=== PATIENT | male | born 1965 | race African-American/Black ===

== ENCOUNTER 2017-03-24 22:52 | Inpatient (IN) | payer BC ==
[2017-03-25] MEDS ORDERED: FLUCONAZOLE 50 MG TABLET PO ONE (00:18)
[2017-03-25] MEDS ORDERED: SODIUM CHLORIDE 0.9% 1000 ML INFUS.BAG IV ONE ×2 (00:22→01:41)
--- NOTE | 2017-03-25 00:24 | PDOC ---
History of Present Illness - History of Present Illness Initial Comments: 03/25/17 00:29 Patient is a 51 year old male with no significant medical hx who is presenting to the ED with external penile irritation for one week. Patient reports one week ago he used a lubricant on his penis and since then hes had redness, burning and excoriations to the skin of the tip. He notes that his external irritation worsens when fluid touches it, specifically when he urinates. Patient denies fever, chills, penile discharge, or hematuria. <Shannan Emerson - Last Filed: 03/25/17 01:37> <Cheri Colón - Last Filed: 03/25/17 02:17> - General Chief Complaint: Penile Drainage Stated Complaint: INFECTION Time Seen by Provider: 03/24/17 23:21 Past History <Shannan Emerson - Last Filed: 03/25/17 01:37> - Immunization History Immunization Up to Date: No - Psycho/Social/Smoking Cessation Hx Anxiety: No Suicidal Ideation: No Smoking History: Never smoked Have you smoked in the past 12 months: No Information on smoking cessation initiated: No Hx Alcohol Use: No Drug/Substance Use Hx: No Substance Use Type: None <Cheri Colón - Last Filed: 03/25/17 02:17> - Past Medical History Allergies/Adverse Reactions: Allergies Allergy/AdvReac Type Severity Reaction Status Date / Time No Known Allergies Allergy Verified 03/24/17 23:08 Home Medications: Ambulatory Orders Diphenhydramine HCl [Benadryl -] 25 mg PO Q6H #28 capsule 03/01/16 Methylprednisolone [Medrol Dose Guy] 4 mg PO ASDIR #21 tablet 03/01/16 Review of Systems - Review of Systems Comments:: 03/25/17 00:29 GENERAL/CONSTITUTIONAL: No fever or chills. No weakness. HEAD, EYES, EARS, NOSE AND THROAT: No change in vision. No ear pain or discharge. No sore throat. CARDIOVASCULAR: No chest pain or shortness of breath. RESPIRATORY: No cough, wheezing, or hemoptysis. GASTROINTESTINAL: No nausea, vomiting, diarrhea or constipation. GENITOURINARY: Penile skin redness, irritation, burning, excoriations. No frequency, or change in urination. MUSCULOSKELETAL: No joint or muscle swelling or pain. No neck or back pain. ENDOCRINE: No increased thirst. No abnormal weight change. SKIN: No rash NEUROLOGIC: No headache, vertigo, loss of consciousness, or change in strength/ sensation. <Shannan Emerson - Last Filed: 03/25/17 01:37> *Physical Exam - Vital Signs Last Vital Signs Temp Pulse Resp BP Pulse Ox 98.3 F 88 18 163/101 98 03/24/17 23:05 03/24/17 23:05 03/24/17 23:05 03/24/17 23:05 03/24/17 23:05 - Physical Exam Comments: 03/25/17 00:30 GENERAL: Awake, alert, and fully oriented, in no acute distress HEAD: No signs of trauma EYES: PERRLA, EOMI, sclera anicteric, conjunctiva clear ENT: Auricles normal inspection, hearing grossly normal, nares patent, oropharynx clear without exudates. Moist mucosa NECK: Normal ROM, supple, no lymphadenopathy, JVD, or masses LUNGS: Breath sounds equal, clear to auscultation bilaterally. No wheezes, and no crackles HEART: Regular rate and rhythm, normal S1 and S2, no murmurs, rubs or gallops ABDOMEN: Soft, nontender, normoactive bowel sounds. No guarding, no rebound. No masses : Uncircumcised. Glands beefy red with excoriation. Some adherent cheese-like discharge. No testicular tenderness. EXTREMITIES: Normal range of motion, no edema. No clubbing or cyanosis. No cords, erythema, or tenderness NEUROLOGICAL: Cranial nerves II through XII grossly intact. Normal speech, normal gait SKIN: Warm, Dry, normal turgor, no rashes or lesions noted. HEMATOLOGIC/LYMPHATIC: No anemia, easy bleeding, or history of blood clots. ALLERGIC/IMMUNOLOGIC: No hives or skin allergy. <Shannan Emerson - Last Filed: 03/25/17 01:37> - Vital Signs Last Vital Signs Temp Pulse Resp BP Pulse Ox 98.3 F 88 18 163/101 98 03/24/17 23:05 03/24/17 23:05 03/24/17 23:05 03/24/17 23:05 03/24/17 23:05 <Cheri Colón - Last Filed: 03/25/17 02:17> ED Treatment Course - LABORATORY CBC & Chemistry Diagram: 03/25/17 00:35 03/25/17 00:35 <Shannan Emerson - Last Filed: 03/25/17 01:37> - LABORATORY CBC & Chemistry Diagram: 03/25/17 00:35 03/25/17 00:35 <Cheri Colón - Last Filed: 03/25/17 02:17> Medical Decision Making - Medical Decision Making 03/25/17 00:24 51 yo M with no pmhx here wtih c/o penile irritation after using a lubricant one week ago. now has burning pain at tip penis. no discharge, but has burning with urination when urine touches skin. pt is sexually active with , no new sexual partners. no f/c no flank pain no testicular pain no abd pain. no f/c no n/v. on exam awake , alert lungs clear heart rrr no mr/gl abd soft NT ND. : glans with uncircumcised, beefy red excoriated skin, cheeselike adherant dc, no penile dc. no testicular tenderness. differential DM, uti, hiv, balanitis, plan will treat with ua culture, labs ua culture glucose. 03/25/17 00:54 pt with BGM reading" high" will order labs, fluids, r/o DKA vs. HONK.unknown diabetic. 03/25/17 01:[address] Ceferino Mejia [phone] in [place]. 03/25/17 01:56 pt with uti, and balkanitis. will require topical bacitracin and nystatin cream to glans of penis daily. also given ceftriaxone for uti and diflucan. insuline 7 units, and ivf. hyperglycemia without DKA <Cheri Colón - Last Filed: 03/25/17 02:17> *DC/Admit/Observation/Transfer - Attestations Scribe Attestion: 03/25/17 00:31 Documentation prepared by Shannan Emerson, acting as paramedical aide for Cheri Colón MD. <Shannan Emerson - Last Filed: 03/25/17 01:37> - Discharge Dispostion Admit: Yes <Cheri Colón - Last Filed: 03/25/17 02:17> Diagnosis at time of Disposition: Diabetes mellitus, Balanitis, UTI (urinary tract infection) - Referrals Referrals: STAFF,NOT ON [Primary Care Provider] -
[2017-03-25 00:48] LABS: VENOUS PH 7.38 (7.32-7.42)
[2017-03-25 00:49] LABS: VENOUS BLOOD GAS HCO3 25.4 meq/L (19-25)
[2017-03-25 00:58] LABS: URINE APPEARANCE CLEAR; URINE BILIRUBIN NEGATIVE (NEGATIVE); URINE BLOOD NEGATIVE (NEGATIVE); URINE COLOR YELLOW; URINE GLUCOSE (UA) 3+ (NEGATIVE); URINE KETONE NEGATIVE (NEGATIVE); URINE LEUK ESTERASE NEGATIVE (NEGATIVE); URINE NITRITE NEGATIVE (NEGATIVE); URINE PROTEIN NEGATIVE (NEGATIVE); URINE UROBILINOGEN NEGATIVE E.U./dl (0.2-1.0)
[2017-03-25 00:59] LABS: BASOPHIL 0.8 % (0-2.0); EOSINOPHIL 2.9 % (0-4.5); MCH 32.3 pg (25.7-33.7); MCHC 34.1 g/dl (32.0-35.9); MEAN CELL VOLUME 94.8 fl (80-96); MEAN PLT VOLUME 9.8 fl (7.5-11.1); NEUTROPHILS 51.6 % (42.8-82.8); PLATELET COUNT 211 K/MM3 (134-434); RDW 13.1 % (11.9-15.9)
[2017-03-25] MEDS ORDERED: FLUCONAZOLE 100 MG TABLET (UD) ONE (01:27)
[2017-03-25 01:33] LABS: ALBUMIN 4.4 g/dl (3.4-5.0); ANION GAP 13 (8-16); BILIRUBIN,TOTAL 0.4 mg/dL (0.2-1.0); CALCIUM 9.3 mg/dL (8.5-10.1); CO2 25 mmol/L (21-32); CREATININE 1.7 mg/dL (0.7-1.3); SGOT/AST 18 U/L (15-37); SGPT/ALT 23 U/L (12-78); TOT PROT 7.8 g/dl (6.4-8.2)
[2017-03-25 01:34] LABS: ALK PHOS 85 U/L (45-117); HIV 1 & 2 AB NEGATIVE; HIV 1 AGp24 NEGATIVE
[2017-03-25 01:51] LABS: GLUCOSE,RANDOM 574 mg/dL (74-106)
[2017-03-25] MEDS ORDERED: INSULIN REGULAR HUMAN 100 UNITS/ML *VIAL IVPUSH ONE (01:57)
[2017-03-25] MEDS: SODIUM CHLORIDE 1,000 ML IV SCH ×2 (02:49→10:25)
--- NOTE | 2017-03-25 02:59 | HP ---
CHIEF COMPLAINT: pain to penis PCP: in [place] HISTORY OF PRESENT ILLNESS: This is a 51 year old male with no past medical history who presented to the ED with pain to penis. Pt denies discharge from penis. Pt does state that he had elevated blood sugar in 2008 which was successfully treated with diet and exercise with no sequelae. Pt states he was seen by his PCP 6 months ago and all his blood work was WNL. He states that he has had polyuria and polydypsia for about one year. Denies polyphagia. Pt states that he is monogamous with his . ER course was notable for: (1) Sugar 574 Recent Travel: pt denies PAST MEDICAL HISTORY: hyperglycemia 2008 PAST SURGICAL HISTORY: pt denies Social History: Smoking: pt denies Alcohol: pt denies Drugs: pt denies Family History: mother age 79, uterine CA sister diagnosed with uterine CA age 61, not expected to survive the year father age 48, "food poisoning" 1 brother and 3 other sisters all healthy 3 children, all healthy Allergies No Known Allergies Allergy (Verified 03/24/17 23:08) HOME MEDICATIONS: 3 Medication Instructions Multivitamin 1 tab po daily REVIEW OF SYSTEMS CONSTITUTIONAL: Absent: fever, chills, diaphoresis, generalized weakness, malaise, loss of appetite, weight change HEENT: Absent: rhinorrhea, nasal congestion, throat pain, throat swelling, difficulty swallowing, mouth swelling, ear pain, eye pain, visual changes CARDIOVASCULAR: Absent: chest pain, syncope, palpitations, irregular heart rate, lightheadedness , peripheral edema RESPIRATORY: Absent: cough, shortness of breath, dyspnea with exertion, orthopnea, wheezing, stridor, hemoptysis GASTROINTESTINAL: Absent: abdominal pain, abdominal distension, nausea, vomiting, diarrhea, constipation, melena, hematochezia GENITOURINARY: Present: Penile pain Absent: dysuria, frequency, urgency, hesitancy, hematuria, flank pain, genital pain MUSCULOSKELETAL: Absent: myalgia, arthralgia, joint swelling, back pain, neck pain SKIN: Absent: rash, itching, pallor HEMATOLOGIC/IMMUNOLOGIC: Absent: easy bleeding, easy bruising, lymphadenopathy, frequent infections ENDOCRINE: Absent: unexplained weight gain, unexplained weight loss, heat intolerance, cold intolerance NEUROLOGIC: Absent: headache, focal weakness or paresthesias, dizziness, unsteady gait, seizure, mental status changes, bladder or bowel incontinence PSYCHIATRIC: Absent: anxiety, depression, suicidal or homicidal ideation, hallucinations. PHYSICAL EXAMINATION Vital Signs - 24 hr 3 03/24/17 03/25/17 03/25/17 23:05 02:49 02:50 Temperature 98.3 F Pulse Rate 88 Respiratory 18 Rate Blood Pressure 163/101 163/97 O2 Sat by Pulse 98 98 Oximetry (%) GENERAL: Awake, alert, and fully oriented, in no acute distress. HEAD: Normal with no signs of trauma. EYES: Pupils equal, round and reactive to light, extraocular movements intact, sclera anicteric, conjunctiva clear. No lid lag. EARS, NOSE, THROAT: Ears normal, nares patent, oropharynx clear without exudates. Moist mucous membranes. NECK: Normal range of motion, supple without lymphadenopathy, JVD, or masses. LUNGS: Breath sounds equal, clear to auscultation bilaterally. No wheezes, and no crackles. No accessory muscle use. HEART: Regular rate and rhythm, normal S1 and S2 without murmur, rub or gallop. ABDOMEN: Soft, nontender, not distended, normoactive bowel sounds, no guarding, no rebound, no masses. No hepatomegaly or splenomegaly. GENTIOURINARY: Uncircumcised. Glans penis with adherent white coating on erythematous base. No phymosis or pseudophymosis MUSCULOSKELETAL: Normal range of motion at all joints. No bony deformities or tenderness. No CVA tenderness. UPPER EXTREMITIES: 2+ pulses, warm, well-perfused. No cyanosis. No clubbing. No peripheral edema. LOWER EXTREMITIES: 2+ pulses, warm, well-perfused. No calf tenderness. No peripheral edema. NEUROLOGICAL: Cranial nerves II-XII intact. Normal speech. Normal gait. PSYCHIATRIC: Cooperative. Good eye contact. Appropriate mood and affect. SKIN: Warm, dry, normal turgor, no rashes or lesions noted, normal capillary refill. Laboratory Results - last 24 hr 3 03/24/17 03/25/17 03/25/17 23:40 00:35 00:35 WBC 7.0 RBC 4.32 Hgb 13.9 Hct 40.9 MCV 94.8 MCHC 34.1 RDW 13.1 Plt Count 211 MPV 9.8 Neutrophils % 51.6 Lymphocytes % 35.6 Monocytes % 9.1 Eosinophils % 2.9 Basophils % 0.8 VBG pH 7.38 POC VBG pCO2 44.2 POC VBG pO2 49.8 H Mixed VBG HCO3 25.4 H Sodium Potassium Chloride Carbon Dioxide Anion Gap BUN Creatinine Creat Clearance w eGFR Random Glucose Calcium Total Bilirubin AST ALT Alkaline Phosphatase Total Protein Albumin Urine Color Yellow Urine Appearance Clear Urine pH 5.0 Urine Protein Negative Urine Glucose (UA) 3+ H Urine Ketones Negative Urine Blood Negative Urine Nitrite Negative Urine Bilirubin Negative Urine Urobilinogen Negative Ur Leukocyte Esterase Negative Acetone, Qual HIV 1&2 Antibody Screen HIV P24 Antigen 3 03/25/17 03/25/17 03/25/17 00:35 00:35 00:35 WBC RBC Hgb Hct MCV MCHC RDW Plt Count MPV Neutrophils % Lymphocytes % Monocytes % Eosinophils % Basophils % VBG pH POC VBG pCO2 POC VBG pO2 Mixed VBG HCO3 Sodium 134 L Potassium 4.7 Chloride 96 L Carbon Dioxide 25 Anion Gap 13 BUN 15 Creatinine 1.7 H Creat Clearance w eGFR 42.37 Random Glucose 574 H* Calcium 9.3 Total Bilirubin 0.4 AST 18 ALT 23 Alkaline Phosphatase 85 Total Protein 7.8 Albumin 4.4 Urine Color Urine Appearance Urine pH Urine Protein Urine Glucose (UA) Urine Ketones Urine Blood Urine Nitrite Urine Bilirubin Urine Urobilinogen Ur Leukocyte Esterase Acetone, Qual Negative HIV 1&2 Antibody Screen Negative HIV P24 Antigen Negative ASSESSMENT/PLAN: 51yM with PMH hyperglycemia in 2008 presented to ED with penile pain, redness. He was found to have significantly elevated glucose and is being admitted for new onset DM. New onset DM - start levemir 5u BID - BGM TIDAC and HS with novolog sliding scale balanitis-candidiasis - given diflucan x 1 in ED - clotrimazole after NS cleanse BID - pt instructed in proper hygeine JASMIN - Cr 1.7, unknown baseline but pt denies any history of kidney problems in past - will treat elevated sugar and hydrate, repeat Cr in AM, if not improving, renal consult DVT PPX - lovenox 40mg SC daily FEN - NS @ 100cc/hr - corrected sodium 141.6-WNL, repeat BMP in AM - diabetic diet Dispo: Pt currently requires inpatient management of his emergent condition and expected LOS exceeds 48H. Visit type - Emergency Visit Emergency Visit: Yes ED Registration Date: 03/24/17 Care time: The patient presented to the Emergency Department on the above date and was hospitalized for further evaluation of their emergent condition. - New Patient This patient is new to me today: Yes Date on this admission: 03/25/17 - Critical Care Critical Care patient: No
[2017-03-25 03:56] VITALS: BMI 28.0
[2017-03-25] MEDS: INSULIN SLIDING SCALE (NOVOLOG) 1 VIAL SQ SCH ×2 (06:10→11:46)
[2017-03-25] MEDS ORDERED: CLOTRIMAZOLE 1% CREAM 15 GM TUBE TP SCH ×2 (07:00→10:00)
[2017-03-25] MEDS ORDERED: INSULIN DETEMIR 100 UNITS/ML MDV SQ SCH (07:00)
[2017-03-25 07:53] LABS: BASOPHIL 1.6 % (0-2.0); EOSINOPHIL 2.9 % (0-4.5); MCH 33.1 pg (25.7-33.7); MCHC 34.8 g/dl (32.0-35.9); MEAN CELL VOLUME 95.2 fl (80-96); MEAN PLT VOLUME 9.3 fl (7.5-11.1); NEUTROPHILS 53.7 % (42.8-82.8); PLATELET COUNT 187 K/MM3 (134-434); WHITE BLOOD COUNT 5.9 K/mm3 (4.0-10.0)
[2017-03-25 08:02] LABS: ANION GAP 8 (8-16); CALCIUM 8.2 mg/dL (8.5-10.1); CO2 28 mmol/L (21-32); CREATININE 1.2 mg/dL (0.7-1.3); GLUCOSE,RANDOM 293 mg/dL (74-106); MAGNESIUM 1.9 mg/dL (1.8-2.4); PHOSPHOROUS 3.7 mg/dL (2.5-4.9)
[2017-03-25] MEDS ORDERED: PT OWN MED DRAWER 7, Y5N ONE (09:39)
[2017-03-25] MEDS ORDERED: ENOXAPARIN NA (PORCINE) 40 MG/0.4 ML DISP.SYRIN SQ SCH (10:00)
[2017-03-25 10:35] VITALS: BP 138/69; PULSE 86; TEMP 98.9
[2017-03-25] MEDS ORDERED: INSULIN (NOVOLOG) ASPART 100 UNITS/ML 10ML VIAL ONE (11:44)
[2017-03-25] MEDS ORDERED: LISINOPRIL 5 MG TABLET (FP) PO ONE (11:54)
[2017-03-25] MEDS ORDERED: glipiZIDE 5 MG TABLET (FP) PO ONE (12:01)
--- NOTE | 2017-03-25 12:10 | DS ---
Physical Exam: SUBJECTIVE: Patient seen and examined. He says his penis feels better, no pain, fever, chills OBJECTIVE: Vital Signs Period Temp Pulse Resp BP Sys/Burch Pulse Ox Last 24 Hr 98.8 F-99.6 F 72-86 17-20 138-164/69-97 98-98 PE Neuro: alert, awake, cn 2-12intact Pulm: CTAB CV: s1 s2 rrr no mrg Abd: s nd nd + bs : penial erythema, red, no discharge Ext: warm, no le edema Laboratory Results - last 24 hr 03/25/17 03/25/17 03/25/17 06:08 06:30 06:30 WBC 5.9 RBC 3.84 L Hgb 12.7 Hct 36.6 MCV 95.2 MCHC 34.8 RDW 13.0 Plt Count 187 MPV 9.3 Neutrophils % 53.7 Lymphocytes % 32.1 Monocytes % 9.7 Eosinophils % 2.9 Basophils % 1.6 Sodium 141 Potassium 3.7 D Chloride 105 Carbon Dioxide 28 Anion Gap 8 BUN 14 Creatinine 1.2 D POC Glucometer 294 Random Glucose 293 H D Calcium 8.2 L Phosphorus 3.7 Magnesium 1.9 HOSPITAL COURSE: Date of Admission:03/25/17 Date of Discharge: 03/25/17 Minutes to complete discharge: 36 Discharge Summary Reason For Visit: DIABETES MELLITUS. UTI BALANITIS Current Active Problems Balanitis (Acute) Diabetes mellitus (Acute) UTI (urinary tract infection) (Acute) Hospital Course: Initial Hospital Course: Briefly, this 51 year old male with no past medical history presented to the ED with pain to penis. Pt denied discharged from penis. He's had elevated blood sugar in 2008 which was successfully treated with diet and exercise with no sequelae. Pt stated he was seen by his PCP 6 months ago and all his blood work was WNL. He reports polyuria and polydypsia for about one year. Denies polyphagia. Pt stated hes monogamous with his . Subsequent Hospital Course/Progress Note/Discharge Summary by a/p: A: 51 year old with PMH hyperglycemia in 2008 presented to ED with penile pain, redness. He was found to have significantly elevated glucose and is being admitted for new onset DM. Plan: 1. New onset DM - Hgb a1c 13 - Start glipizide 2.5mg daily - Start metformin 500mg BID - Endocrine evaluated, to see pt in office next week 2. HTN - Start lisinopril 2.5mg daily 3. Balanitis-candidiasis - given diflucan x 1 in ED - clotrimazole after NS cleanse BID - pt instructed in proper hygeine 4. JASMIN - Likely pre renal - Resolved following fluids Dispo: - Home with new meds, and endocrine f/u Condition: Stable - Instructions Diet, Activity, Other Instructions: Please return to the ED for any new, persistent, or worsening symptoms. Follow up with your PCP in 1 week Take new medications as directed Monitor blood sugar for newly diagnosed diabetes, follow up with [employer] Dr. Saldana (Diabetes doctor)in 1 month Referrals: STAFF,NOT ON [Primary Care Provider] - 1 Week (PCP in [place]) Jalyn Yarbrough MD [Staff Physician] - 1 Week (Follow up this Monday, call office for appt ) Disposition: HOME - Home Medications Comprehensive Discharge Medication List: Ambulatory Orders Glipizide [Glipizide ER] 2.5 mg PO DAILY #30 tab.er.24 03/25/17 Lisinopril 2.5 mg PO DAILY #30 tablet 03/25/17 Metformin HCl [Glucophage -] 500 mg PO BID #60 tablet 03/25/17 Miscellaneous Medical Supply [Glucometer Device] 1 each SQ ASDIR #1 kit Miscellaneous Medical Supply [Glucometer Test Strips #100] 1 each SQ ASDIR #1 box 03/25/17 This patient is new to me today: Yes Date on this admission: 03/25/17 Emergency Visit: Yes ED Registration Date: 03/25/17 Care time: The patient presented to the Emergency Department on the above date and was hospitalized for further evaluation of their emergent condition. Critical Care patient: No - Discharge Referral Referred to [facility] Med [facility] No
--- NOTE | 2017-03-25 12:11 | CONSULT ---
Consult Consult Specialty:: Endocrinology Referred by:: Leilani Gomez Reason for Consultation:: New Onset DM - History of Present Illness Chief Complaint: penile pain History of Present Illness: This is a 51 year old male with no past medical history who presented to the ED with pain to penis. Pt denied discharge from penis. Pt does state that he had elevated blood sugar in 2008 which was successfully treated with diet and exercise with no sequelae. Pt states he was seen by his PCP 6 months ago and all his blood work was WNL. He states that he has had polyuria and polydypsia for about one year. Denies polyphagia. Denies any visual symptoms. No paresthesia of feet. No family h/o DM. Wt loss around 10 lbs in last few months - History Source History Provided By: Patient, Medical Record Limitations to Obtaining History: No Limitations - Alcohol/Substance Use Hx Alcohol Use: No - Smoking History Smoking history: Never smoked Have you smoked in the past 12 months: No Home Medications - Allergies Allergies/Adverse Reactions: Allergies Allergy/AdvReac Type Severity Reaction Status Date / Time No Known Allergies Allergy Verified 03/24/17 23:08 - Home Medications Home Medications: Ambulatory Orders Glipizide [Glipizide ER] 2.5 mg PO DAILY #30 tab.er.24 03/25/17 Lisinopril 2.5 mg PO DAILY #30 tablet 03/25/17 Metformin HCl [Glucophage -] 500 mg PO BID #60 tablet 03/25/17 Miscellaneous Medical Supply [Glucometer Device] 1 each SQ ASDIR #1 kit Miscellaneous Medical Supply [Glucometer Test Strips #100] 1 each SQ ASDIR #1 box 03/25/17 Family Disease History - Family Disease History Other Family History: No family h/o DM Review of Systems - Review of Systems Constitutional: reports: No Symptoms Eyes: reports: No Symptoms HENT: reports: No Symptoms Neck: reports: No Symptoms Cardiovascular: reports: No Symptoms Respiratory: reports: No Symptoms Gastrointestinal: reports: No Symptoms Genitourinary: reports: Other (Penile pain. Polyuria, polydipsia) Breasts: reports: No Symptoms Reported Musculoskeletal: reports: No Symptoms Integumentary: reports: No Symptoms Neurological: reports: No Symptoms Physical Exam Vital Signs: Vital Signs Temperature 98.9 F 03/25/17 10:00 Pulse Rate 86 03/25/17 10:00 Respiratory Rate 18 03/25/17 10:00 Blood Pressure 138/69 03/25/17 10:00 O2 Sat by Pulse Oximetry (%) 98 03/25/17 09:00 Constitutional: Yes: No Distress, Calm Eyes: Yes: Conjunctiva Clear, EOM Intact HENT: Yes: Atraumatic, Normocephalic Neck: Yes: Supple, Trachea Midline Cardiovascular: Yes: Regular Rate and Rhythm Respiratory: Yes: Regular, CTA Bilaterally Gastrointestinal: Yes: Normal Bowel Sounds, Soft Renal/: Yes: Other (erythema of glans penis) Breast(s): Yes: WNL Musculoskeletal: Yes: WNL Extremities: Yes: WNL Edema: No Integumentary: Yes: WNL Neurological: Yes: Alert Labs: CBC, BMP 03/25/17 06:30 03/25/17 06:30 Problem List - Problems (1) Balanitis Code(s): N48.1 - BALANITIS (2) Diabetes mellitus Code(s): E11.9 - TYPE 2 DIABETES MELLITUS WITHOUT COMPLICATIONS Assessment/Plan AP: New Onset DM: Diet exercise discussed Start metformin 500mg BID Glipizide 2.5 mg QD Pt maybe discharged home BGM BID at home F/u in office next Monday Pt to call me at [phone] if blood sugar > 300 Balanitis: Clotrimazole BID
[2017-03-25] MEDS ORDERED: metFORMIN HCL 500 MG TABLET (FP) PO SCH ×2 (12:15→16:30)
== END 2017-03-25 13:07 | disposition home or self-care (01) | DRG 638 ==
LOC: JER 22:52 → JERBED 03-25 02:17 → J8W 03-25 03:35
PROVIDERS: ADMIT Internal Medicine; ATTEND Nurse Practitioner Acute Care
DX: E11.65 Type 2 diabetes mellitus with hyperglycemia (principal); N39.0 Urinary tract infection, site not specified; N17.9 Acute kidney failure, unspecified; I10 Essential (primary) hypertension; N48.1 Balanitis
CPT/HCPCS: 36415; 80048; 80053; 81003; 82009; 82803; 83036; 83735; 84100; 85025; 86593; 87086; 87389; 87491; 87591; 99284-25

== ENCOUNTER 2018-09-12 01:28 | Inpatient (IN) | payer BC ==
--- NOTE | 2018-09-12 02:20 | PDOC ---
History of Present Illness - General Chief Complaint: Pain, Acute Stated Complaint: PAIN,NECK/SHOULDER,BP PROBLEM Time Seen by Provider: 09/12/18 02:16 - History of Present Illness Initial Comments: 09/12/18 02:46 The patient is a 53 year old male with a history of pre-diabetes, HTN who presents for evaluation of left shoulder pain, left neck pain, and high blood pressure. The patient reports a 4 day history of gradual onset of left neck and shoulder pain worse with movement. He does not note any inciting incident at the onset of symptoms. He checked his blood pressure at home and noted it to be elevated prompting his presentation to the ED for further evaluation. He notes that he is currently not on any medications as his primary care provider took him off them. He otherwise denies fevers, chills, SOB, chest pain, nausea , vomiting, abdominal pain, headache, numbness, tingling, weakness, or changes with urination or bowel movements. Past History - Past Medical History Allergies/Adverse Reactions: Allergies Allergy/AdvReac Type Severity Reaction Status Date / Time No Known Allergies Allergy Verified 09/12/18 02:06 Home Medications: Ambulatory Orders Glipizide [Glipizide ER] 2.5 mg PO DAILY #30 tab.er.24 03/25/17 Lisinopril 2.5 mg PO DAILY #30 tablet 03/25/17 Miscellaneous Medical Supply [Glucometer Device] 1 each SQ ASDIR #1 kit Miscellaneous Medical Supply [Glucometer Test Strips #100] 1 each SQ ASDIR #1 box 03/25/17 metFORMIN HCL [Glucophage -] 500 mg PO BID #60 tablet 03/25/17 - Immunization History Immunization Up to Date: No - Suicide/Smoking/Psychosocial Hx Smoking History: Never smoked Have you smoked in the past 12 months: No Information on smoking cessation initiated: No Hx Alcohol Use: No Drug/Substance Use Hx: No Substance Use Type: None Review of Systems - Review of Systems Comments:: 09/12/18 02:50 Constitutional: No fevers, chills, fatigue, malaise HEENT: No Rhinorrhea, nasal congestion, visual changes Cardiovascular: No chest pain, syncope, palpitations, lightheadedness Respiratory: No Cough, SOB, Hemoptysis, Gastrointestinal: No Abdominal pain, Nausea, Vomiting, Constipation, Diarrhea, Melena Genitourinary: No Dysuria, Frequency, Urgency, Hesitancy, Hematuria, Flank pain Musculoskeletal: Left shoulder and Left Neck pain. No Myalgia, arthralgia Skin: No rashes, itching, bruising, pallor Neurologic: No Headache, Dizziness, Numbness, Weakness, or Tingling Psychiatric: No Hallucinations. No SI or HI *Physical Exam - Vital Signs Last Vital Signs Temp Pulse Resp BP Pulse Ox 98.2 F 86 17 179/85 H 100 09/12/18 01:28 09/12/18 01:28 09/12/18 01:28 09/12/18 01:28 09/12/18 01:28 - Physical Exam Comments: 09/12/18 02:51 General Appearance: Nourished. No Apparent Distress HEENT: No Pharyngeal Erythema, Tonsillar Exudate, Tonsillar Erythema Neck: No Cervical Lymphadenopathy Respiratory/Chest: Lungs Clear, Normal Breath Sounds. No Crackles, Rales, Rhonchi, Wheezing Cardiovascular: Regular Rhythm, Regular Rate. No Murmur, Gallops, Rubs Gastrointestinal/Abdominal: Normal Bowel Sounds, Soft. No Guarding, Rebound, Tenderness Musculoskeletal: Discomfort with active movement of the left shoulder. No CVA Tenderness Extremity: Normal Capillary Refill Integumentary: Normal Color, Dry, Warm Neurologic: Fully Oriented, Alert, Normal Mood/Affect, Normal Response, Moderate Sedation - Procedure Monitoring Vital Signs: Procedure Monitoring Vital Signs Temperature 98.2 F 09/12/18 01:28 Pulse Rate 86 09/12/18 01:28 Respiratory Rate 17 09/12/18 01:28 Blood Pressure 179/85 H 09/12/18 01:28 O2 Sat by Pulse Oximetry (%) 100 09/12/18 01:28 ED Treatment Course - LABORATORY CBC & Chemistry Diagram: 09/12/18 03:34 09/12/18 03:34 Medical Decision Making - Medical Decision Making 09/12/18 02:52 The patient is a 53 year old male with a history of pre-diabetes, HTN who presents for evaluation of left shoulder pain, left neck pain, and high blood pressure. Differential includes but is not limited to: HTN, ACS, Musculoskeletal, Infectious, Metabolic derangement. Given the patient's history and physical exam, it is likely his symptoms are musculoskeletal in nature. However, we will obtain a cbc, cmp, troponin, ekg, chest plain film to evaluate further. We will treat with robaxin and continue to monitor and reassess while here in the ED. 09/12/18 06:03 CBC is unremarkable. CMP is unremarkable. Troponin is elevated to 0.06. CP[place] [address]. The patient notes that he recently started lifting weights just prior to onset of his symptoms and has recently started taking a "protein supplement" as well. The patient's symptoms are likely due to rhabdo and we will treat with iv fluids here in the ED. He will require admission for further management. *DC/Admit/Observation/Transfer Diagnosis at time of Disposition: Rhabdomyolysis Qualifiers: Rhabdomyolysis type: non-traumatic Qualified Code(s): M62.82 - Rhabdomyolysis - Discharge Dispostion Condition at time of disposition: Stable Decision to Admit order: Yes - Referrals - Patient Instructions - Post Discharge Activity
[2018-09-12] MEDS ORDERED: METHOCARBAMOL 500 MG TABLET PO ONE (02:43)
[2018-09-12] MEDS ORDERED: METHOCARBAMOL 500 MG TABLET ONE (03:01)
--- NOTE | 2018-09-12 03:34 | PDOC ---
Attending Attestation - Resident Resident Name: Sae Lynn - ED Attending Attestation I have performed the following: I have examined & evaluated the patient, The case was reviewed & discussed with the resident, I agree w/resident's findings & plan, Exceptions are as noted - HPI HPI: 09/12/18 03:23 The patient is a 53 year old male, with a significant past medical history of borderline hypertension, and borderline diabetes, who presents to the emergency department with 4 day complaint of left neck and shoulder pain. He describes the discomfort as a heaviness to his posterior left shoulder and neck. He denies any further radiation of his symptoms. HE reports the pain is constant and made worse only by moving his L upper extremity. He denies trauma or recent heavy lifting. Denies associated CP, SOB, dizziness, weakness, numbness, diaphoresis, nausea, LE edema. Pain is not worse with exertion. Denies family hx cardiac disease although states his father of unknown causes at 48 after "abdominal pain." Denies smoking or tobacco use. Has been applying bengay to the area and taking tylenol with intermittent relief. Lisseth pt was unable to sleep 2/2 to discomfort in his L shoulder, checked his BP, found it to be 180 /80 prompting him to come to the ED. The patient denies headache. The patient denies fever, chills, vomit, diarrhea and constipation. The patient denies dysuria, frequency, urgency and hematuria. Allergies: NKDA - Physicial Exam PE: 09/12/18 03:39 GENERAL: Awake, alert, and fully oriented, in no acute distress HEAD: No signs of trauma EYES: PERRLA, EOMI, sclera anicteric, conjunctiva clear ENT: Oropharynx clear without exudates. Moist mucosa NECK: Normal ROM, supple, no lymphadenopathy, JVD, or masses. +L trapezoid ttp LUNGS: Breath sounds equal, clear to auscultation bilaterally. No wheezes, and no crackles HEART: Regular rate and rhythm, normal S1 and S2, no murmurs, rubs or gallops ABDOMEN: Soft, nontender, normoactive bowel sounds. No guarding, no rebound. No masses EXTREMITIES: Normal range of motion, no edema. No cords, erythema, or tenderness. WWP 2+ pulses NEUROLOGICAL: Normal speech, cranial nerves intact, negative pronator drift, 5/ 5 strength in all 4 extremities, normal sensation to light touch in all 4 extremities, normal cerebellar exam, normal gait, normal tone SKIN: Warm, Dry, normal turgor, no rashes or lesions noted. - Medical Decision Making 09/12/18 03:43 53yo M hx borderline HTN, DM presents to the ED with 4 days of atraumatic L shoulder pain and elevated BP. Vitals with elevated BP, otherwise wnl. Exam with reproducible L sided trapezius pain. DDx includes ACS with atypical presentation, especially with TW changes (no previous EKG to compare) vs MSK pain. Unlikely PE as no risk factors, tachycardia, hypoxia, calf swelling, CP, or SOB. Plan for labs including 2 trops, XR, and rpt EKG for stability. 09/12/18 05:26 CK >61889, trop 0.06, LFTs bumped all concerning for rhabdo Pt initially denied heavy lifting, trauma recently On re-eval, admits to trying new pull down chest/UE exercise at the gym 4 days. Also reports taking creatine/protein powder supplements from [facility] 2L NS ordered Rpt trop ordered UA pending Plan to admit, results/plan discussed with pt 09/12/18 06:25 Case signed out to Dr. Cooper by Dr. Lynn, pt accepted for admission Case discussed in detail with admitting physician including history, physical exam and ancillary studies. Admitting physician has assumed care for the patient, will follow all pending diagnostics and will complete the evaluation and treatment. Heart Score/ECG Review - History History: Slightly suspicious - Electrocardiogram EKG: Non specific repolarization disturbance - Age Age: 45-65 - Risk Factors Based on the list above the patient has:: 1-2 risk factors - Troponin Troponin: </= normal limit - Score Heart Score - Total: 3 #1 09/12/18 05:31 Twelve-lead EKG was performed and reviewed by me. Normal sinus rhythm, rate 81. Normal axis and intervals. No ST elevations. T wave inversions in leads 2, 3, aVF and V5, V6. No previous EKGs to compare. #2 09/12/18 06:29 Twelve-lead EKG was performed and reviewed by me. Normal sinus rhythm, rate 74. Normal axis and intervals. No ST elevations. T wave inversions in leads 2, 3, aVF and V5, V6. COmpared to EKG done at 3:07a, no significant changes
[2018-09-12 03:43] LABS: BASO % 0.4 % (0-2.0); EOS % 5.3 % (0-4.5); HEMATOCRIT 36.6 % (35.4-49); HEMOGLOBIN 13.1 GM/dL (11.7-16.9); LYMPH % 36.1 % (8-40); MCH 34.8 pg (25.7-33.7); MCHC 35.8 g/dl (32.0-35.9); MEAN CELL VOLUME 97.2 fl (80-96); MEAN PLT VOLUME 8.6 fl (7.5-11.1); MONO % 9.7 % (3.8-10.2); NEUT % 48.5 % (42.8-82.8); PLATELET COUNT 218 K/MM3 (134-434); RBC 3.76 M/mm3 (4.00-5.60); RDW 13.1 % (11.9-15.9); WHITE BLOOD COUNT 5.8 K/mm3 (4.0-10.0)
[2018-09-12 04:27] LABS: ALBUMIN 3.8 g/dl (3.4-5.0); ALK PHOS 67 U/L (45-117); ANION GAP 5 MMOL/L (8-16); BILIRUBIN,TOTAL 0.4 mg/dL (0.2-1); BLOOD UREA NITROGEN 15 mg/dL (7-18); CALCIUM 8.6 mg/dL (8.5-10.1); CHLORIDE 108 mmol/L (98-107); CO2 27 mmol/L (21-32); CREATININE 1.3 mg/dL (0.55-1.3); GLUCOSE,RANDOM 133 mg/dL (74-106); POTASSIUM 4.3 mmol/L (3.5-5.1); SGOT/AST 313 U/L (15-37); SGPT/ALT 89 U/L (13-61); SODIUM 140 mmol/L (136-145)
[2018-09-12] MEDS ORDERED: SODIUM CHLORIDE 1,000 ML IV STA ×2 (04:56)
[2018-09-12 06:09] LABS: URINE APPEARANCE CLEAR; URINE BILIRUBIN NEGATIVE (<2.0 mg/dL); URINE COLOR LTYELLOW; URINE GLUCOSE (UA) 1+ (NEGATIVE); URINE KETONE NEGATIVE (NEGATIVE); URINE LEUK ESTERASE NEGATIVE (NEGATIVE); URINE NITRITE NEGATIVE (NEGATIVE); URINE PROTEIN 1+ (NEGATIVE); URINE UROBILINOGEN NEGATIVE mg/dL (0.2-1.0)
[2018-09-12 06:27] LABS: URINE MUCUS RARE
--- NOTE | 2018-09-12 07:41 | PN ---
Teaching Attending Note Name of Resident: Thuy Wallace ATTENDING PHYSICIAN STATEMENT I saw and evaluated the patient. I reviewed the resident's note and discussed the case with the resident. I agree with the resident's findings and plan as documented. SUBJECTIVE: Patient is c/o having left shoulder pain. OBJECTIVE: Vital Signs Temperature 98.2 F 09/12/18 06:50 Pulse Rate 82 09/12/18 06:50 Respiratory Rate 18 09/12/18 06:50 Blood Pressure 190/105 H 09/12/18 06:50 O2 Sat by Pulse Oximetry (%) 99 09/12/18 06:50 GENERAL: Pleasant. Awake, alert, and fully oriented, in no acute distress. HEAD: Normal with no signs of trauma. EYES: Pupils equal, round and reactive to light, extraocular movements intact, sclera anicteric, conjunctiva clear. EARS, NOSE, THROAT: Ears normal,oropharynx clear without exudates. Moist mucous membranes. NECK: Normal range of motion, supple. no JVD LUNGS: Breath sounds equal, clear to auscultation bilaterally. No wheezes, and no crackles. No accessory muscle use. HEART: Regular rate and rhythm, normal S1 and S2 without murmur, rub or gallop. ABDOMEN: Soft, nontender, not distended, normoactive bowel sounds, no guarding, no rebound MUSCULOSKELETAL: Normal range of motion at all joints. EXTREMITIES: 2+ pt pulses, warm, well-perfused. No calf tenderness. No peripheral edema. NEUROLOGICAL: Cranial nerves II-XII intact. sensation intact. PSYCHIATRIC: Cooperative. Good eye contact. Appropriate mood and affect. SKIN: Warm, dry CBCD WBC 5.8 K/mm3 (4.0-10.0) 09/12/18 03:34 RBC 3.76 M/mm3 (4.00-5.60) L 09/12/18 03:34 Hgb 13.1 GM/dL (11.7-16.9) 09/12/18 03:34 Hct 36.6 % (35.4-49) 09/12/18 03:34 MCV 97.2 fl (80-96) H 09/12/18 03:34 MCHC 35.8 g/dl (32.0-35.9) 09/12/18 03:34 RDW 13.1 % (11.9-15.9) 09/12/18 03:34 Plt Count 218 K/MM3 (134-434) 09/12/18 03:34 MPV 8.6 fl (7.5-11.1) 09/12/18 03:34 CMP Sodium 140 mmol/L (136-145) 09/12/18 03:34 Potassium 4.3 mmol/L (3.5-5.1) 09/12/18 03:34 Chloride 108 mmol/L (98-107) H 09/12/18 03:34 Carbon Dioxide 27 mmol/L (21-32) 09/12/18 03:34 Anion Gap 5 MMOL/L (8-16) L 09/12/18 03:34 BUN 15 mg/dL (7-18) 09/12/18 03:34 Creatinine 1.3 mg/dL (0.55-1.3) 09/12/18 03:34 Creat Clearance w eGFR 57.31 (>60) 09/12/18 03:34 Random Glucose 133 mg/dL (74-106) H 09/12/18 03:34 Calcium 8.6 mg/dL (8.5-10.1) 09/12/18 03:34 Total Bilirubin 0.4 mg/dL (0.2-1) 09/12/18 03:34 AST 313 U/L (15-37) H 09/12/18 03:34 ALT 89 U/L (13-61) H 09/12/18 03:34 Alkaline Phosphatase 67 U/L (45-117) 09/12/18 03:34 Total Protein 7.0 g/dl (6.4-8.2) 09/12/18 03:34 Albumin 3.8 g/dl (3.4-5.0) 09/12/18 03:34 CARDIAC ENZYMES Creatine Kinase > 78324 IU/L (26-308) H 09/12/18 03:34 Troponin I 0.06 ng/ml (0.00-0.05) H 09/12/18 05:35 Home Medications Medication Instructions Recorded Glipizide [Glipizide ER] 2.5 mg PO DAILY #30 tab.er.24 03/25/17 Lisinopril 2.5 mg PO DAILY #30 tablet 03/25/17 Miscellaneous Medical Supply 1 each SQ ASDIR #1 kit 03/25/17 [Glucometer Device] Miscellaneous Medical Supply 1 each SQ ASDIR #1 box 03/25/17 [Glucometer Test Strips #100] metFORMIN HCL [Glucophage -] 500 mg PO BID #60 tablet 03/25/17 Laboratory Tests 09/12/18 09/12/18 09/12/18 03:34 05:35 09:52 Creatinine 1.3 Hemoglobin A1c % 6.9 H Total Bilirubin 0.4 AST 313 H ALT 89 H Creatine Kinase Troponin I 0.06 H Triglycerides Cholesterol Total LDL Cholesterol HDL Cholesterol 09/12/18 09/12/18 09/13/18 11:53 11:53 06:00 Creatinine Hemoglobin A1c % Total Bilirubin AST ALT Creatine Kinase 79081 H 8551 H Troponin I 0.05 Triglycerides 142 Cholesterol 173 Total LDL Cholesterol 91 HDL Cholesterol 57 ASSESSMENT AND PLAN: Patient is a 53 y/o M with PMH HTN (off meds for 1 yr as per PCP), pre-DM (as per pt; currently not on metformin, glipizide, taken off by PCP. Prior A1c 2017 : 13), who presents to the ED c/o L sided neck and shoulder pain over the past four days. # Acute rhabdomyolysis with CPK level of 13,400, will trend cpk level , continue IVF at 150cc/hr. #Hypertensive urgency on Lopressor and quanipril continue will discontinue chlorthalidone # Mild Elevation of troponin , cardio consult , going for stress test in am #T2DM sliding scale with coverage #ARF: 1.3 will monitor DVt Px: heparin sq
[2018-09-12] MEDS ORDERED: LABETALOL HCL 100 MG TABLET (FP) PO SCH (08:40)
[2018-09-12] MEDS ORDERED: LABETALOL HCL 100 MG TABLET (FP) ONE (08:50)
[2018-09-12] MEDS ORDERED: HEPARIN NA (PORCINE) 5,000 UNITS/ML 1ML VIAL ONE (08:50)
--- NOTE | 2018-09-12 08:51 | HP ---
CHIEF COMPLAINT: muscle pain PCP: Dr. Ceferino Mejia HISTORY OF PRESENT ILLNESS: 53 y/o M with PMH HTN (off meds for 1 yr as per PCP), pre-DM (as per pt; currently not on metformin, glipizide, taken off by PCP. Prior A1c 2017: 13), who presents to the ED c/o L sided neck and shoulder pain over the past four days. As per pt, four days ago, he noticed a dull pain in his L neck and shoulder, which was mildly exacerbated with LUE movement. States that this past week, he ran on the treadmill at speed 6 (his routine) for 45 minutes. One day during the week, he did vigorous arm pull-down exercises with weights. During this time, pt has also bought energy drinks/supplements from [employer], natural pills online for increased metabolism. Today, he checked his BP at home (179/80) and became concerned, thus he came to the ED for further evaluation. Denies [place], fever, chills, SOB, chest pain or pressure, or changes in urinary or bowel function. Without dysuria or dark-colored urine. ER course was notable for: (1) methocarbamol x1 (2) 2L NS (3) Recent Travel: denies PAST MEDICAL HISTORY: HTN (off meds for 1 yr as per PCP), pre-DM (as per pt; currently not on metformin, glipizide, taken off by PCP. Prior A1c 2017: 13) PAST SURGICAL HISTORY: denies Social History: moved 25 yrs ago from [facility]. 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 Smoking: denies Alcohol: denies Drugs: denies Family History: father- passed suddenly; from SCD after developing abdominal pain. mother- "abdominal cancer"-passed age 79. Allergies No Known Allergies Allergy (Verified 09/12/18 02:06) HOME MEDICATIONS: Home Medications Confirmed with patient currently does not take any medications. REVIEW OF SYSTEMS CONSTITUTIONAL: Absent: fever, chills, diaphoresis, generalized weakness, malaise, loss of appetite, weight change HEENT: Absent: rhinorrhea, nasal congestion, throat pain, throat swelling, difficulty swallowing, mouth swelling, ear pain, eye pain, visual changes CARDIOVASCULAR: +chest pain Absent: syncope, palpitations, irregular heart rate, lightheadedness, peripheral edema RESPIRATORY: Absent: cough, shortness of breath, dyspnea with exertion, orthopnea, wheezing, stridor, hemoptysis GASTROINTESTINAL: Absent: abdominal pain, abdominal distension, nausea, vomiting, diarrhea, constipation, melena, hematochezia GENITOURINARY: Absent: dysuria, frequency, urgency, hesitancy, hematuria, flank pain, genital pain MUSCULOSKELETAL: +neck pain Absent: myalgia, arthralgia, joint swelling, back pain SKIN: Absent: rash, itching, pallor HEMATOLOGIC/IMMUNOLOGIC: Absent: easy bleeding, easy bruising, lymphadenopathy, frequent infections ENDOCRINE: Absent: unexplained weight gain, unexplained weight loss, heat intolerance, cold intolerance NEUROLOGIC: Absent: headache, focal weakness or paresthesias, dizziness, unsteady gait, seizure, mental status changes, bladder or bowel incontinence PSYCHIATRIC: Absent: anxiety, depression, suicidal or homicidal ideation, hallucinations. PHYSICAL EXAMINATION Vital Signs - 24 hr 09/12/18 09/12/18 01:28 06:50 Temperature 98.2 F 98.2 F Pulse Rate 86 Pulse Rate [ 82 Left Apical] Respiratory 17 18 Rate Blood Pressure 179/85 H Blood Pressure 190/105 H [Left Arm] O2 Sat by Pulse 100 99 Oximetry (%) GENERAL: Pleasant. Awake, alert, and fully oriented, in no acute distress. HEAD: Normal with no signs of trauma. EYES: Pupils equal, round and reactive to light, extraocular movements intact, sclera anicteric, conjunctiva clear. EARS, NOSE, THROAT: Ears normal, nares patent, oropharynx clear without exudates. Moist mucous membranes. NECK: Normal range of motion, supple. +mild TTP L trapezius LUNGS: Breath sounds equal, clear to auscultation bilaterally. No wheezes, and no crackles. No accessory muscle use. HEART: Regular rate and rhythm, normal S1 and S2 without murmur, rub or gallop. ABDOMEN: Soft, nontender, not distended, normoactive bowel sounds, no guarding, no rebound MUSCULOSKELETAL: Normal range of motion at all joints. LOWER EXTREMITIES: 2+ pt pulses, warm, well-perfused. No calf tenderness. No peripheral edema. NEUROLOGICAL: Cranial nerves II-XII intact. sensation intact. PSYCHIATRIC: Cooperative. Good eye contact. Appropriate mood and affect. SKIN: Warm, dry Laboratory Results - last 24 hr 09/12/18 09/12/18 09/12/18 03:34 03:34 05:35 WBC 5.8 RBC 3.76 L Hgb 13.1 Hct 36.6 MCV 97.2 H MCH 34.8 H MCHC 35.8 RDW 13.1 Plt Count 218 MPV 8.6 Absolute Neuts (auto) 2.8 Neutrophils % 48.5 Lymphocytes % 36.1 Monocytes % 9.7 Eosinophils % 5.3 H D Basophils % 0.4 Nucleated RBC % 0 Sodium 140 Potassium 4.3 Chloride 108 H Carbon Dioxide 27 Anion Gap 5 L BUN 15 Creatinine 1.3 Creat Clearance w eGFR 57.31 Random Glucose 133 H Calcium 8.6 Total Bilirubin 0.4 AST 313 H ALT 89 H Alkaline Phosphatase 67 Creatine Kinase > 08699 H Creatine Kinase Index 0.0 CK-MB (CK-2) 2.0 Troponin I 0.06 H 0.06 H Total Protein 7.0 Albumin 3.8 Urine Color Urinalysis 09/12/18 06:02 Urine Color Ltyellow Urine Protein 1+ H Urine Glucose (UA) 1+ H Urine Ketones Negative Urine Blood Negative Urine Nitrite Negative Urine Bilirubin Negative Urine Urobilinogen Negative Ur Leukocyte Esterase Negative EKG: NSR, rate 81. TWI 2, 3, aVF, V5, V6. Will order repeat for comparison CXR: without infiltrates or effusions ASSESSMENT/PLAN: 53 y/o M with PMH HTN (off meds for 1 yr as per PCP), pre-DM (as per pt; currently not on metformin, glipizide, taken off by PCP. Prior A1c 2017: 13), who presents to the ED c/o L sided neck and shoulder pain over the past four days. #Rhabdomyolysis likely 2/2 supplement use, vigorous weights -utox (-). recommended d/c supplements, pills -vol resuscitation LR 150 cc/hr -repeat CK this afternoon and tomorrow AM -will follow electrolytes 2/2 muscle breakdown, specifically K, Ca, uric #Elevated trops, possible anterior ischemia -Cardio consult; Dr. Palacio; repeat EKG with possible worsening anterior changes d/w cardio will give asa 162x1, plavix 300mg x 1, lipitor 80mg qd, lovenox, met tartate, accupril 10mg qd -tele monitoring -trop 0.06, 0.06: cont to trend -f/u ECHO; if low EF or multiple territories involved may need cath, or MIBI -f/u repeat EKG 12:30pm #HTN-uncontrolled -received 2L NS, however currently not on lisinopril as per pt. was d/c 1 yr ago by PCP -started on labetalol 100mg BID, first dose now. #JASMIN -baseline Cr 1.2; Cr improving -continue with IVF #Transaminitis likely 2/2 rhabdo -continue with IVF -will f/u LFTs tomorrow #DM -A1c 6.9 (current) -ISS, BGM #F/E/N -IV LR 150 cc/hr -continue to follow lytes -NPO in case of cath #PPX DVT: lovenox #Dispo tele monitoring Visit type - Emergency Visit Emergency Visit: Yes ED Registration Date: 09/12/18 Care time: The patient presented to the Emergency Department on the above date and was hospitalized for further evaluation of their emergent condition. - New Patient This patient is new to me today: Yes Date on this admission: 09/12/18 - Critical Care Critical Care patient: No
[2018-09-12 08:59] LABS: COCAINE, UR NEGATIVE ng/ml (CUTOFF=300); METHADONE, UR NEGATIVE ng/ml (CUTOFF=300); OPIATES, URI NEGATIVE ng/ml (CUTOFF=300); PHENCYCLIDINE,URINE NEGATIVE ng/ml (CUTOFF=25); URINE AMPHETAMINES NEGATIVE ng/ml (CUTOFF=500); URINE BARBITURATES NEGATIVE ng/ml (CUTOFF=200); URINE BENZODIAZEPINES NEGATIVE ng/ml (CUTOFF=200)
[2018-09-12] MEDS: LACTATED RINGERS SOLUTION 1,000 ML/1,000 ML INFUS.BAG IV SCH ×2 (09:03→22:52)
--- NOTE | 2018-09-12 09:17 | EKG ---
Test Reason : Blood Pressure : / mmHG Vent. Rate : 081 BPM Atrial Rate : 081 BPM P-R Int : 188 ms QRS Dur : 094 ms QT Int : 356 ms P-R-T Axes : 063 010 -37 degrees QTc Int : 413 ms NORMAL SINUS RHYTHM SEPTAL INFARCT , AGE UNDETERMINED T WAVE ABNORMALITY, CONSIDER INFERIOR ISCHEMIA ABNORMAL ECG NO PREVIOUS ECGS AVAILABLE Confirmed by PEG DYE MD ([id number]) on 09/12/2018 9:17:32 AM Referred By: Confirmed By:PEG DYE MD
[2018-09-12] MEDS ORDERED: ASPIRIN 81 MG CHEWABLE TABLETS PO ONE (09:30)
[2018-09-12] MEDS ORDERED: CLOPIDOGREL BISULFATE 300 MG TABLET PO ONE (09:31)
--- NOTE | 2018-09-12 09:45 | EKG ---
Test Reason : Blood Pressure : / mmHG Vent. Rate : 067 BPM Atrial Rate : 067 BPM P-R Int : 198 ms QRS Dur : 100 ms QT Int : 372 ms P-R-T Axes : 058 013 -33 degrees QTc Int : 393 ms NORMAL SINUS RHYTHM ANTEROSEPTAL INFARCT (CITED ON OR BEFORE 12-SEP-2018) T WAVE ABNORMALITY, CONSIDER INFERIOR ISCHEMIA ABNORMAL ECG WHEN COMPARED WITH ECG OF 12-SEP-2018 05:46, SERIAL CHANGES OF ANTEROSEPTAL INFARCT PRESENT Confirmed by HARDIK BOOGIE, PEG ([id number]) on 09/12/2018 9:44:53 AM Referred By: Confirmed By:PEG DYE MD
[2018-09-12] MEDS: ENOXAPARIN NA (PORCINE) 100 MG/1 ML DISP.SYRIN SQ SCH ×2 (09:52→10:10)
[2018-09-12] MEDS ORDERED: CLOPIDOGREL BISULFATE 300 MG TABLET ONE (09:54)
[2018-09-12] MEDS ORDERED: ASPIRIN 81 MG CHEWABLE TABLETS ONE (09:54)
[2018-09-12] MEDS ORDERED: HEPARIN NA (PORCINE) 5,000 UNITS/ML 1ML VIAL SQ SCH (10:00)
--- NOTE | 2018-09-12 10:20 | EKG ---
Test Reason : Blood Pressure : / mmHG Vent. Rate : 074 BPM Atrial Rate : 074 BPM P-R Int : 192 ms QRS Dur : 098 ms QT Int : 374 ms P-R-T Axes : 057 000 -19 degrees QTc Int : 415 ms NORMAL SINUS RHYTHM SEPTAL INFARCT (CITED ON OR BEFORE 12-SEP-2018) ABNORMAL ECG WHEN COMPARED WITH ECG OF 12-SEP-2018 03:07, NO SIGNIFICANT CHANGE WAS FOUND Confirmed by PEG DYE MD ([id number]) on 09/12/2018 10:19:48 AM Referred By: Confirmed By:PEG DYE MD
--- NOTE | 2018-09-12 11:23 | CON.CARD ---
Consult Consult Specialty:: Cardiology Reason for Consultation:: l neck pain abn ekg positive tnis - History Source History Provided By: Patient, Medical Record - Past Medical History Cardio/Vascular: Yes: HTN, Hyperlipdemia Endocrine: Yes: Diabetes Mellitus - Alcohol/Substance Use Hx Alcohol Use: No - Smoking History Smoking history: Never smoked Have you smoked in the past 12 months: No Home Medications - Allergies Allergies/Adverse Reactions: Allergies Allergy/AdvReac Type Severity Reaction Status Date / Time No Known Allergies Allergy Verified 09/12/18 02:06 - Home Medications Home Medications: Ambulatory Orders NK [No Known Home Medication] 09/12/18 Review of Systems - Review of Systems Constitutional: reports: No Symptoms Eyes: reports: No Symptoms HENT: reports: No Symptoms Neck: reports: No Symptoms Cardiovascular: reports: Chest Pain Gastrointestinal: reports: No Symptoms Genitourinary: reports: No Symptoms Breasts: reports: No Symptoms Reported Musculoskeletal: reports: No Symptoms Integumentary: reports: No Symptoms Neurological: reports: No Symptoms Endocrine: reports: No Symptoms Hematology/Lymphatic: reports: No Symptoms Psychiatric: reports: No Symptoms Vital Signs: Vital Signs Temperature 98.2 F 09/12/18 06:50 Pulse Rate 82 09/12/18 06:50 Respiratory Rate 18 09/12/18 06:50 Blood Pressure 190/105 H 09/12/18 06:50 O2 Sat by Pulse Oximetry (%) 99 09/12/18 06:50 Constitutional: Yes: Well Nourished, No Distress, Calm Eyes: Yes: WNL, Conjunctiva Clear, EOM Intact HENT: Yes: WNL, Atraumatic, Normocephalic Neck: Yes: WNL, Supple, Trachea Midline Respiratory: Yes: WNL, Regular, CTA Bilaterally Gastrointestinal: Yes: WNL, Normal Bowel Sounds Renal/: Yes: WNL Cardiovascular: Yes: WNL, Regular Rate and Rhythm Heart Sounds: Yes: S1, S2 Musculoskeletal: Yes: WNL Extremities: Yes: WNL Integumentary: Yes: WNL Neurological: Yes: WNL, Alert, Oriented ...Motor Strength: WNL Psychiatric: Yes: WNL, Alert, Oriented - Other Data Labs, Other Data: CBC, BMP 09/12/18 03:34 09/12/18 03:34 Troponin, BNP 09/12/18 09/12/18 03:34 05:35 Troponin I 0.06 H 0.06 H Troponin, BNP 09/12/18 09/12/18 03:34 05:35 Troponin I 0.06 H 0.06 H Imaging - Results Chest X-ray: Image Reviewed (no i/e) EKG: Image Reviewed (sr old ant sep mi lvh rep abn) Problem List - Problems (1) Rhabdomyolysis Code(s): M62.82 - RHABDOMYOLYSIS Qualifiers: Rhabdomyolysis type: non-traumatic Qualified Code(s): M62.82 - Rhabdomyolysis (2) Balanitis Code(s): N48.1 - BALANITIS (3) Diabetes mellitus Code(s): E11.9 - TYPE 2 DIABETES MELLITUS WITHOUT COMPLICATIONS (4) Poison jayro dermatitis Code(s): L23.7 - ALLERGIC CONTACT DERMATITIS DUE TO PLANTS, EXCEPT FOOD (5) UTI (urinary tract infection) Code(s): N39.0 - URINARY TRACT INFECTION, SITE NOT SPECIFIED Assessment/Plan noncompliance dm htn ?old mi f/u by cardiologists in [place] - "everything was OK -stress test last year} positive TNIs Plan r/o mi echo ASA plavix lovonox lopressor 25BID Accupril 10 QD lipid panel will f/u MIBI ST or c. cath depending on echo results and hospital course
[2018-09-12] MEDS ORDERED: QUINAPRIL HCL 10 MG TABLET (FP) PO SCH ×2 (11:30→13:58)
[2018-09-12] MEDS: INSULIN SLIDING SCALE (NOVOLOG) 1 VIAL SQ SCH ×3 (12:03→22:53)
[2018-09-12] MEDS ORDERED: INSULIN (NOVOLOG) ASPART 100 UNITS/ML 10ML VIAL ONE ×2 (12:04→17:09)
[2018-09-12] MEDS ORDERED: QUINAPRIL HCL 10 MG TABLET (FP) ONE (12:06)
[2018-09-12] MEDS ORDERED: ONDANSETRON 4 MG/2 ML VIAL ONE (12:16)
--- NOTE | 2018-09-12 12:33 | ECHO ---
Name: BRYSON MARIN Exam:Adult Echocardiogram Study Date: 09/12/2018 10:18 AM Age: 53 yrs Height: 72 in Weight: 190 lb BSA: 2.1 m2 MMode/2D Measurements & Calculations IVSd: 1.1 cm Ao root diam: 3.0 cm LVIDd: 5.5 cm LA dimension: 3.9 cm LVIDs: 3.7 cm LVPWd: 1.2 cm EDV(Teich): 149.7 ml LVOT diam: 2.2 cm ESV(Teich): 57.2 ml Doppler Measurements & Calculations MV E max justino: 81.4 cm/sec TR max justino: 200.9 cm/sec MV A max justino: 78.5 cm/sec TR max P.1 mmHg MV E/A: 1.0 Med Peak E' Justino: 5.2 cm/sec Med E/e': 15.8 Lat Peak E' Justino: 6.1 cm/sec Lat E/e': 13.3 Procedure A two-dimensional transthoracic echocardiogram with color flow and Doppler was performed. Left Ventricle There is moderate concentric left ventricular hypertrophy. The left ventricular ejection fraction is normal. E/A reversal consistent with but not diagnostic of poor LV compliance. The left ventricular wall ector on is normal. Right Ventricle The right ventricle is normal in size and function. Atria The left atrium is borderline dilated. The right atrium is mildly dilated. Mitral Valve There is mild mitral valve thickening. There is no mitral valve stenosis. There is mild mitral regurg itation. Tricuspid Valve The tricuspid valve is normal in structure and function. There is no tricuspid stenosis. There is mil d tricuspid regurgitation. Right ventricular systolic pressure is normal. Aortic Valve The aortic valve is normal in structure and function. No hemodynamically significant valvular aortic stenosis. No aortic regurgitation is present. Pulmonic Valve The pulmonic valve is not well visualized. There is no pulmonic valvular stenosis. There is no pulmon ic valvular regurgitation. Great Vessels The aortic root is normal size. Pericardium/Pleura There is no pericardial effusion. Interpretation Summary There is moderate concentric left ventricular hypertrophy. The left ventricular ejection fraction is normal. The left ventricular wall motion is normal. The left atrium is borderline dilated. The right atrium is mildly dilated. There is mild mitral regurgitation. There is mild tricuspid regurgitation. Right ventricular systolic pressure is normal. E/A reversal consistent with but not diagnostic of poor LV compliance MD Maykel Palacio 09/12/2018 12:32 PM
--- NOTE | 2018-09-12 13:36 | EKG ---
Test Reason : Blood Pressure : / mmHG Vent. Rate : 067 BPM Atrial Rate : 067 BPM P-R Int : 204 ms QRS Dur : 094 ms QT Int : 382 ms P-R-T Axes : 059 008 -39 degrees QTc Int : 403 ms NORMAL SINUS RHYTHM ANTEROSEPTAL INFARCT (CITED ON OR BEFORE 12-SEP-2018) T WAVE ABNORMALITY, CONSIDER INFEROLATERAL ISCHEMIA ABNORMAL ECG WHEN COMPARED WITH ECG OF 12-SEP-2018 09:16, SERIAL CHANGES OF ANTEROSEPTAL INFARCT PRESENT Confirmed by HARDIK BOOGIE, PEG ([id number]) on 09/12/2018 1:35:43 PM Referred By: Confirmed By:PEG DYE MD
[2018-09-12] MEDS ORDERED: MELATONIN 5 MG TABLETS PO ONE (21:15)
[2018-09-12] MEDS ORDERED: ATORVASTATIN CA 80 MG TABLET (FP) PO SCH (22:00)
[2018-09-12] MEDS: METOPROLOL TARTRATE 25 MG TABLET (FP) PO SCH (22:53)
[2018-09-13 02:46] VITALS: BMI 27.5
[2018-09-13] MEDS: LACTATED RINGERS SOLUTION 1,000 ML/1,000 ML INFUS.BAG IV SCH ×3 (05:20→22:25)
[2018-09-13] MEDS: INSULIN SLIDING SCALE (NOVOLOG) 1 VIAL SQ SCH ×4 (06:12→21:41)
[2018-09-13 07:51] LABS: ALBUMIN 3.7 g/dl (3.4-5.0); ALK PHOS 60 U/L (45-117); ANION GAP 7 MMOL/L (8-16); BILIRUBIN,TOTAL 0.5 mg/dL (0.2-1); BLOOD UREA NITROGEN 12 mg/dL (7-18); CALCIUM 8.5 mg/dL (8.5-10.1); CHLORIDE 105 mmol/L (98-107); CHOLESTEROL 173 mg/dL (50-200); CO2 26 mmol/L (21-32); CREATININE 1.2 mg/dL (0.55-1.3); GLUCOSE,RANDOM 125 mg/dL (74-106); HDL CHOLESTEROL 57 mg/dL (40-60); MAGNESIUM 1.9 mg/dL (1.8-2.4); PHOSPHOROUS 4.5 mg/dL (2.5-4.9); POTASSIUM 3.8 mmol/L (3.5-5.1); SGOT/AST 211 U/L (15-37); SGPT/ALT 80 U/L (13-61); SODIUM 138 mmol/L (136-145); TOT PROT 6.5 g/dl (6.4-8.2); TRIGLYCERIDES 142 mg/dL (0-150)
--- NOTE | 2018-09-13 08:46 | PN ---
Teaching Attending Note Name of Resident: Haritha Sanchez ATTENDING PHYSICIAN STATEMENT I saw and evaluated the patient. I reviewed the resident's note and discussed the case with the resident. I agree with the resident's findings and plan as documented. SUBJECTIVE: Patient is feeling better , no further shoulder pain. OBJECTIVE: Vital Signs Temperature 97.9 F 09/13/18 07:01 Pulse Rate 73 09/13/18 07:01 Respiratory Rate 18 09/13/18 07:01 Blood Pressure 163/90 09/13/18 07:01 O2 Sat by Pulse Oximetry (%) 99 09/12/18 17:48 GENERAL: Pleasant. Awake, alert, and fully oriented, in no acute distress. HEAD: Normal with no signs of trauma. EYES: Pupils equal, round and reactive to light, extraocular movements intact, sclera anicteric, conjunctiva clear. EARS, NOSE, THROAT: Ears normal,oropharynx clear without exudates. Moist mucous membranes. NECK: Normal range of motion, supple. no JVD LUNGS: Breath sounds equal, clear to auscultation bilaterally. No wheezes, and no crackles. No accessory muscle use. HEART: Regular rate and rhythm, normal S1 and S2 without murmur, rub or gallop. ABDOMEN: Soft, nontender, not distended, normoactive bowel sounds, no guarding, no rebound MUSCULOSKELETAL: Normal range of motion at all joints. EXTREMITIES: 2+ pt pulses, warm, well-perfused. No calf tenderness. No peripheral edema. NEUROLOGICAL: Cranial nerves II-XII intact. sensation intact. PSYCHIATRIC: Cooperative. Good eye contact. Appropriate mood and affect. SKIN: Warm, dry CBCD WBC 5.8 K/mm3 (4.0-10.0) 09/12/18 03:34 RBC 3.76 M/mm3 (4.00-5.60) L 09/12/18 03:34 Hgb 13.1 GM/dL (11.7-16.9) 09/12/18 03:34 Hct 36.6 % (35.4-49) 09/12/18 03:34 MCV 97.2 fl (80-96) H 09/12/18 03:34 MCHC 35.8 g/dl (32.0-35.9) 09/12/18 03:34 RDW 13.1 % (11.9-15.9) 09/12/18 03:34 Plt Count 218 K/MM3 (134-434) 09/12/18 03:34 MPV 8.6 fl (7.5-11.1) 09/12/18 03:34 CMP Sodium 138 mmol/L (136-145) 09/13/18 06:00 Potassium 3.8 mmol/L (3.5-5.1) 09/13/18 06:00 Chloride 105 mmol/L (98-107) 09/13/18 06:00 Carbon Dioxide 26 mmol/L (21-32) 09/13/18 06:00 Anion Gap 7 MMOL/L (8-16) L 09/13/18 06:00 BUN 12 mg/dL (7-18) 09/13/18 06:00 Creatinine 1.2 mg/dL (0.55-1.3) 09/13/18 06:00 Creat Clearance w eGFR > 60 (>60) 09/13/18 06:00 Random Glucose 125 mg/dL (74-106) H 09/13/18 06:00 Calcium 8.5 mg/dL (8.5-10.1) 09/13/18 06:00 Total Bilirubin 0.5 mg/dL (0.2-1) 09/13/18 06:00 AST 211 U/L (15-37) H 09/13/18 06:00 ALT 80 U/L (13-61) H 09/13/18 06:00 Alkaline Phosphatase 60 U/L (45-117) 09/13/18 06:00 Total Protein 6.5 g/dl (6.4-8.2) 09/13/18 06:00 Albumin 3.7 g/dl (3.4-5.0) 09/13/18 06:00 CARDIAC ENZYMES Creatine Kinase 8551 IU/L (26-308) H 09/13/18 06:00 Troponin I 0.05 ng/ml (0.00-0.05) 09/12/18 11:53 Current Medications Generic Name Dose Route Start Last Admin Trade Name Freq PRN Reason Stop Dose Admin Amlodipine Besylate 5 mg 09/13/18 10:00 Norvasc - PO DAILY REJI Atorvastatin Calcium 80 mg 09/12/18 22:00 09/12/18 22:53 Lipitor - PO 80 mg HS REJI Administration will dicontinue since elevated CPK level Lactated Ringer's 1,000 ml in 1,000 mls @ 150 mls/hr 09/12/18 08:45 09/13/18 05:20 Lactated Ringers Solution IV 150 mls/hr ASDIR REJI Administration Insulin Aspart 1 vial 09/12/18 11:00 09/13/18 06:12 Novolog Vial Sliding Scale - SQ Not Given ACHS [facility] Protocol Metoprolol Tartrate 25 mg 09/12/18 22:00 09/12/18 22:53 Lopressor - PO 25 mg BID REJI Administration Quinapril HCl 20 mg 09/12/18 13:58 Accupril - PO DAILY [facility] Home Medications Medication Instructions Recorded Glipizide [Glipizide ER] 1 tab PO DAILY 09/12/18 Metformin HCl [Glucophage] 1 tab PO BID 09/12/18 Sildenafil Citrate [Viagra] 1 tab PO PRN 09/12/18 Tylenol Pm Ex-Strength Caplet HS PRN 09/13/18 Laboratory Tests 09/12/18 09/12/18 09/12/18 03:34 09:52 11:53 Creatinine 1.3 Hemoglobin A1c % 6.9 H Total Bilirubin 0.4 AST 313 H ALT 89 H Creatine Kinase 84528 H 09/13/18 06:00 Creatinine Hemoglobin A1c % Total Bilirubin AST ALT Creatine Kinase 8551 H ASSESSMENT AND PLAN: Patient is a 53 y/o M with PMH HTN (off meds for 1 yr as per PCP), pre-DM (as per pt; currently not on metformin, glipizide, taken off by PCP. Prior A1c 2017 : 13), who presents to the ED c/o L sided neck and shoulder pain over the past four days. # Acute rhabdomyolysis will trend cpk level , continue IVF at 15cc/hr. x 2 more liters. HOLD LIPITOR DUE TO ELEVATED CPK #Hypertensive urgency on Lopressor and quanipril continue # Mild Elevation of troponin , patient went for stress test and was found to have no ischmia on the stress test. , cardiac point of view can be discharged but continues to have elevated CPK level # T2DM sliding scale with coverage #ARF: 1.3 --> 1.2 today continue to monitor DVt Px: heparin sq
[2018-09-13] MEDS ORDERED: amLODIPine BESYLATE 5 MG TABLET (FP) PO SCH (10:00)
--- NOTE | 2018-09-13 12:01 | EKG ---
Test Reason : Blood Pressure : / mmHG Vent. Rate : 073 BPM Atrial Rate : 073 BPM P-R Int : 188 ms QRS Dur : 096 ms QT Int : 378 ms P-R-T Axes : 054 002 -25 degrees QTc Int : 416 ms NORMAL SINUS RHYTHM NONSPECIFIC T WAVE ABNORMALITY ABNORMAL ECG WHEN COMPARED WITH ECG OF 12-SEP-2018 11:45, CRITERIA FOR ANTEROSEPTAL INFARCT ARE NO LONGER PRESENT Confirmed by PER BOOGIE, CARLITA ([id number]) on 09/13/2018 12:01:04 PM Referred By: Diego DYE Confirmed By:CARLITA ALBARADO MD
[2018-09-13] MEDS: METOPROLOL TARTRATE 25 MG TABLET (FP) PO SCH ×2 (12:24→21:44)
--- NOTE | 2018-09-13 12:39 | PN ---
Progress Note, Physician Chief Complaint: Pt A&Ox3; no chest pain, dysuria, SOB. History of Present Illness: The patient is a 53 year old black male (smita Ribeiro);with a history of pre- diabetes, HTN who presents for evaluation of left shoulder pain, left neck pain , and high blood pressure. The patient reports a 4 day history of gradual onset of left neck and shoulder pain worse with movement. He does not note any inciting incident at the onset of symptoms. He checked his blood pressure at home and noted it to be elevated prompting his presentation to the ED for further evaluation. He notes that he is currently not on any medications as his primary care provider took him off them. He otherwise denies fevers, chills , SOB, chest pain, nausea, vomiting, abdominal pain, headache, numbness, tingling, weakness, or changes with urination or bowel movements. 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 - Current Medication List Current Medications: Active Medications Amlodipine Besylate (Norvasc -) 5 mg PO DAILY [facility] Last Admin: 09/13/18 09:58 Dose: 5 mg Atorvastatin Calcium (Lipitor -) 80 mg PO HS [facility] Last Admin: 09/12/18 22:53 Dose: 80 mg Lactated Ringer's (Lactated Ringers Solution) 1,000 ml in 1,000 mls @ 150 mls/ hr IV ASDIR [facility] Last Admin: 09/13/18 12:24 Dose: 150 mls/hr Insulin Aspart (Novolog Vial Sliding Scale -) 1 vial SQ ACHS [facility]; Protocol Last Admin: 09/13/18 12:25 Dose: Not Given Metoprolol Tartrate (Lopressor -) 25 mg PO BID [facility] Last Admin: 09/13/18 12:24 Dose: 25 mg Quinapril HCl (Accupril -) 20 mg PO DAILY [facility] Last Admin: 09/13/18 09:58 Dose: 20 mg - Objective Vital Signs: Vital Signs Temperature 97.9 F 09/13/18 09:01 Pulse Rate 78 09/13/18 09:01 Respiratory Rate 18 09/13/18 09:01 Blood Pressure 151/93 09/13/18 09:01 O2 Sat by Pulse Oximetry (%) 99 09/12/18 17:48 Constitutional: Yes: Well Nourished, No Distress Eyes: Yes: WNL HENT: Yes: WNL Neck: Yes: WNL Cardiovascular: Yes: WNL Respiratory: Yes: WNL Gastrointestinal: Yes: Soft ...Rectal Exam: Yes: Deferred Genitourinary: No: Anuria Breast(s): Yes: WNL Musculoskeletal: Yes: WNL Extremities: Yes: WNL Edema: No Peripheral Pulses WNL: Yes Integumentary: Yes: WNL Neurological: Yes: WNL Psychiatric: Yes: WNL Labs: CBC, BMP 09/12/18 03:34 09/13/18 06:00 Abnormal Lab Results 09/13/18 06:00 Anion Gap 7 L Random Glucose 125 H AST 211 H ALT 80 H Creatine Kinase 8551 H - ....Imaging EKG: Image Reviewed Other: Image Reviewed (telemetry: NSR) Problem List - Problems (1) HTN (hypertension) Assessment/Plan: On amlodipine, quinipril, and metoprolol tartrate. Consider changing metoprolol to another class of antihypertensive (pt says he was on this before, but it was stopped due to development of impotence; he is not sure is metformin was another factor). Code(s): I10 - ESSENTIAL (PRIMARY) HYPERTENSION (2) Hyperlipidemia Assessment/Plan: Consider statin if LFTS normaize. Code(s): E78.5 - HYPERLIPIDEMIA, UNSPECIFIED (3) Proteinuria Assessment/Plan: Pt has known of having DM since 2017. He shows his lunch pack brought by his ,and describes in detail how careully he eats (vegetables, no red meat). He has bottoles of Boost in the bag , and drinks at least two a day, as well as other "metabolic supplements". Recommend stopping all of these supplements while being treated for rhabdomyolysis, with proteinuria and increase in HGBA1c noted, and obtain nutrition consultatiion. Code(s): R80.9 - PROTEINURIA, UNSPECIFIED (4) Rhabdomyolysis Assessment/Plan: ?secondary to left shoulder trauma, metabolic and food supplements. +Proteinura, elevated HGBA1c. Continue IV and PO fluids. BUN/Cr, electrlytes, Is and Os. Code(s): M62.82 - RHABDOMYOLYSIS Qualifiers: Rhabdomyolysis type: non-traumatic Qualified Code(s): M62.82 - Rhabdomyolysis (5) Diabetes mellitus Assessment/Plan: F/u workup. Pt says he was diagnosed with DM in 2017; he was put on an oral agent (? Metformin) and an antihypertensive. Six months later, his HGBA1c had apparetnly decreased from &+ to 5.7, and he was taken off all medications. His HGBA1c now is 6.9, with elevated fasting glucose. Code(s): E11.9 - TYPE 2 DIABETES MELLITUS WITHOUT COMPLICATIONS (6) Elevated LFTs Code(s): R94.5 - ABNORMAL RESULTS OF LIVER FUNCTION STUDIES (7) Elevated troponin I level Assessment/Plan: minimally elevated TNI (may be secondary to rhabdomyolysis); normal CKMB. EKG: no acute STT changes. Stress MIBI today: no myocardial ischemia. Code(s): R74.8 - ABNORMAL LEVELS OF OTHER SERUM ENZYMES
--- NOTE | 2018-09-13 13:44 | PN ---
Physical Exam: SUBJECTIVE: Patient seen and examined at bedside. No acute events overnight. OBJECTIVE: Vital Signs Temperature 97.9 F 09/13/18 09:01 Pulse Rate 78 09/13/18 09:01 Respiratory Rate 18 09/13/18 09:01 Blood Pressure 151/93 09/13/18 09:01 O2 Sat by Pulse Oximetry (%) 99 09/12/18 17:48 GENERAL: Pleasant. Awake, alert, and fully oriented, in no acute distress. HEAD: Normal with no signs of trauma. EYES: Pupils equal, round and reactive to light, extraocular movements intact, sclera anicteric, conjunctiva clear. EARS, NOSE, THROAT: Ears normal, nares patent, oropharynx clear without exudates. Moist mucous membranes. NECK: Normal range of motion, supple. +mild TTP L trapezius LUNGS: Breath sounds equal, clear to auscultation bilaterally. No wheezes, and no crackles. No accessory muscle use. HEART: Regular rate and rhythm, normal S1 and S2 without murmur, rub or gallop. ABDOMEN: Soft, nontender, not distended, normoactive bowel sounds, no guarding, no rebound MUSCULOSKELETAL: Normal range of motion at all joints. LOWER EXTREMITIES: 2+ pt pulses, warm, well-perfused. No calf tenderness. No peripheral edema. NEUROLOGICAL: Cranial nerves II-XII intact. sensation intact. PSYCHIATRIC: Cooperative. Good eye contact. Appropriate mood and affect. SKIN: Warm, dry CBCD WBC 5.8 K/mm3 (4.0-10.0) 09/12/18 03:34 RBC 3.76 M/mm3 (4.00-5.60) L 09/12/18 03:34 Hgb 13.1 GM/dL (11.7-16.9) 09/12/18 03:34 Hct 36.6 % (35.4-49) 09/12/18 03:34 MCV 97.2 fl (80-96) H 09/12/18 03:34 MCHC 35.8 g/dl (32.0-35.9) 09/12/18 03:34 RDW 13.1 % (11.9-15.9) 09/12/18 03:34 Plt Count 218 K/MM3 (134-434) 09/12/18 03:34 MPV 8.6 fl (7.5-11.1) 09/12/18 03:34 CMP Sodium 138 mmol/L (136-145) 09/13/18 06:00 Potassium 3.8 mmol/L (3.5-5.1) 09/13/18 06:00 Chloride 105 mmol/L (98-107) 09/13/18 06:00 Carbon Dioxide 26 mmol/L (21-32) 09/13/18 06:00 Anion Gap 7 MMOL/L (8-16) L 09/13/18 06:00 BUN 12 mg/dL (7-18) 09/13/18 06:00 Creatinine 1.2 mg/dL (0.55-1.3) 09/13/18 06:00 Creat Clearance w eGFR > 60 (>60) 09/13/18 06:00 Calcium 8.5 mg/dL (8.5-10.1) 09/13/18 06:00 Total Bilirubin 0.5 mg/dL (0.2-1) 09/13/18 06:00 AST 211 U/L (15-37) H 09/13/18 06:00 ALT 80 U/L (13-61) H 09/13/18 06:00 Alkaline Phosphatase 60 U/L (45-117) 09/13/18 06:00 Total Protein 6.5 g/dl (6.4-8.2) 09/13/18 06:00 Albumin 3.7 g/dl (3.4-5.0) 09/13/18 06:00 Active Medications Amlodipine Besylate (Norvasc -) 5 mg PO DAILY [facility] Last Admin: 09/13/18 09:58 Dose: 5 mg Atorvastatin Calcium (Lipitor -) 80 mg PO HS [facility] Last Admin: 09/12/18 22:53 Dose: 80 mg Lactated Ringer's (Lactated Ringers Solution) 1,000 ml in 1,000 mls @ 150 mls/ hr IV ASDIR [facility] Last Admin: 09/13/18 12:24 Dose: 150 mls/hr Insulin Aspart (Novolog Vial Sliding Scale -) 1 vial SQ ACHS [facility]; Protocol Last Admin: 09/13/18 12:25 Dose: Not Given Metoprolol Tartrate (Lopressor -) 25 mg PO BID [facility] Last Admin: 09/13/18 12:24 Dose: 25 mg Quinapril HCl (Accupril -) 20 mg PO DAILY [facility] Last Admin: 09/13/18 09:58 Dose: 20 mg IMAGING: * EKG: NSR, rate 81. TWI 2, 3, aVF, V5, V6. Will order repeat for comparison * CXR: without infiltrates or effusions * ECHO: Mod. concentric LVH. LVEF is normal. LV wall motion is normal. LA is borderline dilated. Mild MR. Mild TR. RV systolic pressure is normal. E/A reversal consistent but not diagnostic of poor LV compliance. ASSESSMENT/PLAN: 53 y/o M with PMH HTN (off meds for 1 yr as per PCP), pre-DM (as per pt; currently not on metformin, glipizide, taken off by PCP. Prior A1c 2017: 13), who presents to the ED c/o L sided neck and shoulder pain over the past four days. #Rhabdomyolysis likely 2/2 supplement use, vigorous weights; Improving, CPK ~ 8500 today. -utox (-). recommended d/c supplements, pills -vol resuscitation LR 150 cc/hr -Repeat CPK, goal <5000 -will follow electrolytes 2/2 muscle breakdown, specifically K, Ca, uric #Elevated trops, possible anterior ischemia; resolved. -MIBI stress test done, unremarkable. Per cardio, need to DC supplements and follow up with primary care physician -trops peaked; unlikely ACS at this time. #HTN; 150/71 today. -received 2L NS, however currently not on lisinopril as per pt. was d/c 1 yr ago by PCP -Amlodipine 5 mg PO QD -Metoprolol 25 mg PO QD -Quinipril 20 mg PO QD #JASMIN -baseline Cr 1.2; Cr improving -continue with IVF #Transaminitis likely 2/2 rhabdo -continue with IVF; improving -will f/u LFTs tomorrow #DM -A1c 6.9 (current) -ISS, BGM #F/E/N -IV LR 150 cc/hr -continue to follow lytes -diabetic/sodium controlled diet #PPX DVT: lovenox #Dispo tele monitoring Visit type - Emergency Visit Emergency Visit: Yes ED Registration Date: 09/12/18 Care time: The patient presented to the Emergency Department on the above date and was hospitalized for further evaluation of their emergent condition. - New Patient This patient is new to me today: Yes Date on this admission: 09/14/18 - Critical Care Critical Care patient: No
[2018-09-13] MEDS ORDERED: MELATONIN 5 MG TABLETS PO ONE (21:49)
[2018-09-14 04:14] VITALS: TEMP 97.9
[2018-09-14] MEDS: LACTATED RINGERS SOLUTION 1,000 ML/1,000 ML INFUS.BAG IV SCH ×2 (05:15→09:23)
[2018-09-14] MEDS: INSULIN SLIDING SCALE (NOVOLOG) 1 VIAL SQ SCH ×2 (06:17→12:03)
--- NOTE | 2018-09-14 08:57 | PN ---
Progress Note, Physician Chief Complaint: Pt A&Ox3; again denies chest pain, dysuria, SOB. History of Present Illness: The patient is a 53 year old black male (smita Ribeiro);with a history of pre- diabetes, HTN who presents for evaluation of left shoulder pain, left neck pain , and high blood pressure. The patient reports a 4 day history of gradual onset of left neck and shoulder pain worse with movement. He does not note any inciting incident at the onset of symptoms. He checked his blood pressure at home and noted it to be elevated prompting his presentation to the ED for further evaluation. He notes that he is currently not on any medications as his primary care provider took him off them. He otherwise denies fevers, chills , SOB, chest pain, nausea, vomiting, abdominal pain, headache, numbness, tingling, weakness, or changes with urination or bowel movements. 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 - Current Medication List Current Medications: Active Medications Amlodipine Besylate (Norvasc -) 5 mg PO DAILY [facility] Last Admin: 09/13/18 09:58 Dose: 5 mg Lactated Ringer's (Lactated Ringers Solution) 1,000 ml in 1,000 mls @ 150 mls/ hr IV ASDIR [facility] Last Admin: 09/14/18 05:15 Dose: 150 mls/hr Insulin Aspart (Novolog Vial Sliding Scale -) 1 vial SQ [facility]; Protocol Last Admin: 09/14/18 06:17 Dose: Not Given Metoprolol Tartrate (Lopressor -) 25 mg PO BID [facility] Last Admin: 09/13/18 21:44 Dose: 25 mg Quinapril HCl (Accupril -) 20 mg PO DAILY [facility] Last Admin: 09/13/18 09:58 Dose: 20 mg - Objective Vital Signs: Vital Signs Temperature 97.9 F 09/14/18 06:00 Pulse Rate 68 09/14/18 06:00 Respiratory Rate 20 09/14/18 06:00 Blood Pressure 151/77 09/14/18 06:00 O2 Sat by Pulse Oximetry (%) 99 09/12/18 17:48 Constitutional: Yes: Well Nourished Eyes: Yes: WNL HENT: Yes: WNL Neck: Yes: WNL Cardiovascular: Yes: WNL Respiratory: Yes: WNL Gastrointestinal: Yes: WNL ...Rectal Exam: Yes: Deferred Genitourinary: No: Anuria Breast(s): Yes: WNL Musculoskeletal: Yes: WNL Extremities: Yes: WNL Edema: No Peripheral Pulses WNL: Yes Integumentary: Yes: WNL Neurological: Yes: WNL ...Motor Strength: WNL Psychiatric: Yes: WNL Labs: CBC, BMP 09/12/18 03:34 09/13/18 06:00 Abnormal Lab Results 09/12/18 09/13/18 09/14/18 03:34 17:00 06:15 Chloride 108 H Anion Gap 5 L Random Glucose 133 H AST 313 H ALT 89 H Creatine Kinase 96201 H 6527 H 4057 H Troponin I 0.06 H - ....Imaging Other: Image Reviewed (telemetry: NSR; no arrhythmias) Problem List - Problems (1) HTN (hypertension) Assessment/Plan: On amlodipine, quiniprill; will increse doses of both, given continuing elevated BP. ECHO: normal LVEF: abnormal diastolic compliance; moderate LVH; mild TR and MR. Discontinued metoprolol; another class of antihypertensive if elevattion of other meds is not sufrficient to control BP (pt says he was on this before, but it was stopped due to development of impotence; he is not sure is metformin was another factor). Code(s): I10 - ESSENTIAL (PRIMARY) HYPERTENSION (2) Hyperlipidemia Assessment/Plan: Elevated LDL cholesterol. Consider statin if LFTS normalize. Code(s): E78.5 - HYPERLIPIDEMIA, UNSPECIFIED (3) Proteinuria Assessment/Plan: Pt has known of having DM since 2017. He shows his lunch pack brought by his ,and describes in detail how careully he eats (vegetables, no red meat). He has bottoles of Boost in the bag , and drinks at least two a day, as well as other "metabolic supplements" (he sees a vacuum evaporation operator since being diagnosed with DM last year, but bought the supplements on his own because it said "for diabetics" on the label). Recommend stopping all of these supplements while being treated for rhabdomyolysis, with proteinuria and increase in HGBA1c noted, and obtain nutrition consultatiion. Code(s): R80.9 - PROTEINURIA, UNSPECIFIED (4) Rhabdomyolysis Assessment/Plan: ?secondary to left shoulder trauma, metabolic and food supplements. +Proteinura, elevated HGBA1c. Continue IV and PO fluids. BUN/Cr, electrlytes, Is and Os. Code(s): M62.82 - RHABDOMYOLYSIS Qualifiers: Rhabdomyolysis type: non-traumatic Qualified Code(s): M62.82 - Rhabdomyolysis (5) Diabetes mellitus Assessment/Plan: F/u workup. Pt says he was diagnosed with DM in 2017; he was put on an oral agent (? Metformin) and an antihypertensive. Six months later, his HGBA1c had apparetnly decreased from &+ to 5.7, and he was taken off all medications.He had also developed impotence, and was worried it was due to either metformin or metoprolol; both were discontinued several months ago. His HGBA1c now is 6.9, with elevated fasting glucose, and despite him exercising regularly and following a strict diet. Code(s): E11.9 - TYPE 2 DIABETES MELLITUS WITHOUT COMPLICATIONS (6) Elevated LFTs Assessment/Plan: f/u as fluids continue, rhabdomyolysis improves Code(s): R94.5 - ABNORMAL RESULTS OF LIVER FUNCTION STUDIES (7) Elevated troponin I level Assessment/Plan: minimally elevated TNI (may be secondary to rhabdomyolysis); normal CKMB. EKG: no acute STT changes. Stress MIBI: no myocardial ischemia. From a cardiac standpoint, pt may be followed as an outpatient. Code(s): R74.8 - ABNORMAL LEVELS OF OTHER SERUM ENZYMES (8) Impotence due to erectile dysfunction Assessment/Plan: Hx impotence when on metoprolol. Pt has normal LVEF; no arrhythmias; normal stress MIBI. Will discontinue metoprolol. Increase doses of amlodipine and quinapril. If necessary, add another class of medication (e.g. hydralazine; or ARB, if renal function/proeteinura normalize, and cleared by artificial limb fitter). Code(s): N52.9 - MALE ERECTILE DYSFUNCTION, UNSPECIFIED
--- NOTE | 2018-09-14 09:13 | PN ---
Teaching Attending Note Name of Resident: Haritha Sanchez ATTENDING PHYSICIAN STATEMENT I saw and evaluated the patient. I reviewed the resident's note and discussed the case with the resident. I agree with the resident's findings and plan as documented. SUBJECTIVE: Patuient is feeling better with no acute distress, no further shoulder pain. OBJECTIVE: Vital Signs Temperature 97.9 F 09/14/18 06:00 Pulse Rate 68 09/14/18 06:00 Respiratory Rate 20 09/14/18 06:00 Blood Pressure 151/77 09/14/18 06:00 O2 Sat by Pulse Oximetry (%) 99 09/12/18 17:48 GENERAL: Pleasant. Awake, alert, and fully oriented, in no acute distress. HEAD: Normal with no signs of trauma. EYES: Pupils equal, round and reactive to light, extraocular movements intact, sclera anicteric, conjunctiva clear. EARS, NOSE, THROAT: Ears normal,oropharynx clear without exudates. Moist mucous membranes. NECK: Normal range of motion, supple. no JVD LUNGS: Breath sounds equal, clear to auscultation bilaterally. No wheezes, and no crackles. No accessory muscle use. HEART: Regular rate and rhythm, normal S1 and S2 without murmur, rub or gallop. ABDOMEN: Soft, nontender, not distended, normoactive bowel sounds, no guarding, no rebound MUSCULOSKELETAL: Normal range of motion at all joints. EXTREMITIES: 2+ pt pulses, warm, well-perfused. No calf tenderness. No peripheral edema. NEUROLOGICAL: Cranial nerves II-XII intact. sensation intact. PSYCHIATRIC: Cooperative. Good eye contact. Appropriate mood and affect. SKIN: Warm, dry CBCD WBC 5.8 K/mm3 (4.0-10.0) 09/12/18 03:34 RBC 3.76 M/mm3 (4.00-5.60) L 09/12/18 03:34 Hgb 13.1 GM/dL (11.7-16.9) 09/12/18 03:34 Hct 36.6 % (35.4-49) 09/12/18 03:34 MCV 97.2 fl (80-96) H 09/12/18 03:34 MCHC 35.8 g/dl (32.0-35.9) 09/12/18 03:34 RDW 13.1 % (11.9-15.9) 09/12/18 03:34 Plt Count 218 K/MM3 (134-434) 09/12/18 03:34 MPV 8.6 fl (7.5-11.1) 09/12/18 03:34 CMP Sodium 138 mmol/L (136-145) 09/13/18 06:00 Potassium 3.8 mmol/L (3.5-5.1) 09/13/18 06:00 Chloride 105 mmol/L (98-107) 09/13/18 06:00 Carbon Dioxide 26 mmol/L (21-32) 09/13/18 06:00 Anion Gap 7 MMOL/L (8-16) L 09/13/18 06:00 BUN 12 mg/dL (7-18) 09/13/18 06:00 Creatinine 1.2 mg/dL (0.55-1.3) 09/13/18 06:00 Creat Clearance w eGFR > 60 (>60) 09/13/18 06:00 Random Glucose 125 mg/dL (74-106) H 09/13/18 06:00 Calcium 8.5 mg/dL (8.5-10.1) 09/13/18 06:00 Total Bilirubin 0.5 mg/dL (0.2-1) 09/13/18 06:00 AST 211 U/L (15-37) H 09/13/18 06:00 ALT 80 U/L (13-61) H 09/13/18 06:00 Alkaline Phosphatase 60 U/L (45-117) 09/13/18 06:00 Total Protein 6.5 g/dl (6.4-8.2) 09/13/18 06:00 Albumin 3.7 g/dl (3.4-5.0) 09/13/18 06:00 CARDIAC ENZYMES Creatine Kinase 4057 IU/L (26-308) H 09/14/18 06:15 Troponin I 0.05 ng/ml (0.00-0.05) 09/12/18 11:53 Current Medications Generic Name Dose Route Start Last Admin Trade Name Freq PRN Reason Stop Dose Admin Amlodipine Besylate 10 mg 09/14/18 10:00 Norvasc - PO DAILY [facility] Lactated Ringer's 1,000 ml in 1,000 mls @ 150 mls/hr 09/12/18 08:45 09/14/18 05:15 Lactated Ringers Solution IV 150 mls/hr ASDIR [facility] Administration Insulin Aspart 1 vial 09/12/18 11:00 09/14/18 06:17 Novolog Vial Sliding Scale - SQ Not Given ACHS [facility] Protocol Quinapril HCl 40 mg 09/14/18 10:00 Accupril - PO DAILY [facility] Home Medications Medication Instructions Recorded Glipizide [Glipizide ER] 1 tab PO DAILY 09/12/18 Metformin HCl [Glucophage] 1 tab PO BID 09/12/18 Sildenafil Citrate [Viagra] 1 tab PO PRN 09/12/18 Laboratory Tests 09/12/18 09/12/18 09/12/18 03:34 05:35 09:52 Creatinine 1.3 Hemoglobin A1c % 6.9 H Total Bilirubin 0.4 AST 313 H ALT 89 H Creatine Kinase Troponin I 0.06 H Triglycerides Cholesterol Total LDL Cholesterol HDL Cholesterol 09/12/18 09/12/18 09/13/18 11:53 11:53 06:00 Creatinine Hemoglobin A1c % Total Bilirubin AST ALT Creatine Kinase 67502 H 8551 H Troponin I 0.05 Triglycerides 142 Cholesterol 173 Total LDL Cholesterol 91 HDL Cholesterol 57 Laboratory Tests 09/12/18 09/12/18 09/12/18 03:34 05:35 09:52 Creatinine 1.3 Hemoglobin A1c % 6.9 H Total Bilirubin 0.4 AST 313 H ALT 89 H Creatine Kinase Troponin I 0.06 H Triglycerides Cholesterol Total LDL Cholesterol HDL Cholesterol 09/12/18 09/12/18 09/13/18 11:53 11:53 06:00 Creatinine Hemoglobin A1c % Total Bilirubin AST ALT Creatine Kinase 08525 H 8551 H Troponin I 0.05 Triglycerides 142 Cholesterol 173 Total LDL Cholesterol 91 HDL Cholesterol 57 09/13/18 09/14/18 17:00 06:15 Creatinine Hemoglobin A1c % Total Bilirubin AST ALT Creatine Kinase 6527 H 4057 H Troponin I Triglycerides Cholesterol Total LDL Cholesterol HDL Cholesterol ASSESSMENT AND PLAN: Patient is a 53 y/o M with PMHx of HTN (off meds for 1 yr as per PCP), pre-DM ( as per pt; currently not on metformin, glipizide, taken off by PCP. Prior A1c 2017: 13), who presents to the ED c/o L sided neck and shoulder pain over the past four days. # Acute rhabdomyolysis improving : cpk is 4057 today , patient will be discharged home today , suggested to continue drinking around 3 liter of fluid daily. askd the patient to repeat the cpk level in a week period . HOLD LIPITOR DUE TO ELEVATED CPK also asked to hold the metformin for now. #Hypertensive urgency (improved) on Lopressor and quanipril continue # Mild Elevation of troponin , patient went for stress test and was found to have no ischmia on the stress test. , cardiac point of view can be discharged but continues to have elevated CPK level # T2DM asked to continue with Glipizide #ARF: 1.3 --> 1.2 stable patient was asked not to drink Boosts or any other protein shakes. follow up with the antiquer in a week period. to check CPK level.
[2018-09-14 09:39] VITALS: BP 151/85; PULSE 83
[2018-09-14] MEDS ORDERED: amLODIPine BESYLATE 10 MG TABLET (FP) PO SCH (10:00)
[2018-09-14] MEDS ORDERED: QUINAPRIL HCL 20 MG TABLET (FP) PO SCH (10:00)
[2018-09-14] MEDS ORDERED: INSULIN SLIDING SCALE (NOVOLOG) 1 VIAL SQ ONE (11:58)
--- NOTE | 2018-09-14 19:25 | DS ---
Physical Exam: SUBJECTIVE: Patient seen and examined OBJECTIVE: Vital Signs Period Temp Pulse Resp BP Sys/Burch Pulse Ox Last 24 Hr 97.9 F-98.7 F 68-83 16-20 150-159/71-96 PHYSICAL EXAM GENERAL: Pleasant. Awake, alert, and fully oriented, in no acute distress. HEAD: Normal with no signs of trauma. EYES: Pupils equal, round and reactive to light, extraocular movements intact, sclera anicteric, conjunctiva clear. EARS, NOSE, THROAT: Ears normal, nares patent, oropharynx clear without exudates. Moist mucous membranes. NECK: Normal range of motion, supple. +mild TTP L trapezius LUNGS: Breath sounds equal, clear to auscultation bilaterally. No wheezes, and no crackles. No accessory muscle use. HEART: Regular rate and rhythm, normal S1 and S2 without murmur, rub or gallop. ABDOMEN: Soft, nontender, not distended, normoactive bowel sounds, no guarding, no rebound MUSCULOSKELETAL: Normal range of motion at all joints. LOWER EXTREMITIES: 2+ pt pulses, warm, well-perfused. No calf tenderness. No peripheral edema. NEUROLOGICAL: Cranial nerves II-XII intact. sensation intact. PSYCHIATRIC: Cooperative. Good eye contact. Appropriate mood and affect. SKIN: Warm, dry LABS Laboratory Results - last 24 hr 09/12/18 09/13/18 09/14/18 03:34 21:17 05:31 POC Glucometer 129 140 Creatine Kinase Creatine Kinase Index TNP CK-MB (CK-2) TNP 09/14/18 09/14/18 06:15 11:55 POC Glucometer 229 Creatine Kinase 4057 H Creatine Kinase Index 0.0 CK-MB (CK-2) 1.2 HOSPITAL COURSE: Date of Admission:09/12/18 IMAGING: * EKG: NSR, rate 81. TWI 2, 3, aVF, V5, V6. Will order repeat for comparison * CXR: without infiltrates or effusions * ECHO: Mod. concentric LVH. LVEF is normal. LV wall motion is normal. LA is borderline dilated. Mild MR. Mild TR. RV systolic pressure is normal. E/A reversal consistent but not diagnostic of poor LV compliance. 53 y/o M with PMH HTN (off meds for 1 yr as per PCP), pre-DM (as per pt; currently not on metformin, glipizide, taken off by PCP. Prior A1c 2017: 13), presented to the ED c/o L sided neck and shoulder pain over the past four days. Pt was found to have rhabdomyolysis (elevated CPK found on labs) likely 2/2 supplemental use and vigorous weight training. Aggressive IV fluid hydration was administered. Additionally, labs showed elevated trops; EKG showed possible anterior ischemia. Pt was admitted to telemetry to r/o ACS and for treatment of rhabdomyolysis. He was assessed by cardio and was given Aspirin, Plavix, BB, CCB , ACEi. Echo was done that showed normal LV EF. Stress MIBI was done that did not show evidence of myocardial ischemia. Pt's symptoms improved through the hospital stay. Repeat CPK also decreased. He was subsequently discharged with recommendation to follow up with his PCP and to discontinue all supplemental use. Pt was advised to continue taking Amlodipine and Quinipril as well as home Glipizide for DM. Date of Discharge: 09/14/18 Minutes to complete discharge: 40 Discharge Summary Reason For Visit: RHABDOMYOLYSIS,ELEVATED TROPONIN LEVEL Condition: Improved - Instructions Diet, Activity, Other Instructions: You were seen in the hospital for complaints of muscle pain in your left shoulder and high blood pressure. In the hospital, you were found to have rhabdomyolysis (muscle breakdown). You were treated and your symptoms improved. Additionally, you were evaluated by a sales recruiting coordinator. A stress test was done that did not show cardiac abnormalities. You were not found to have an acute cardiac condition at this time. You are being discharged home. MEDICAL RECOMMENDATIONS Please drink plenty of fluids. This is important to treat your rhabdomyolysis in order to prevent potential kidney problems. Please stop taking Metformin for now until your muscle enzymes go down. repeat CPK level is needed in a week. please drink plenty of water on a daily basis around 3 liters of water. Additionally, please take the following medications: Amlodipine 10 mg by mouth once a day. Quinapril HCl 40 mg by mouth once a day. Glypizide ER 2.5 mg once a day. It is very important to stop taking Boost, supplemental vitamins, natural herbs , and any other medications that are not prescribed by a physician as these may be the cause of your symptoms and may worsen your kidney function. CONSULT RECOMMENDATIONS Please follow up with your primary care physician, Dr. Ceferino Mejia within 1 week. It is important to follow up with your doctor for further evaluation of diabetes and hypertension as you will likely need medication. We will also provide you our clinic # to follow up with us. If you experience worsening chest pain, chest pain, persistent headache, visual changes, difficulty walking or other associated symptoms, please proceed to your nearest emergency room immediately. Referrals: [facility] [place] [facility] [place] [Provider Group] - 1 Week Maykel Palacio MD [Staff Physician] - 1 Week Disposition: HOME - Home Medications Comprehensive Discharge Medication List: Ambulatory Orders Glipizide [Glipizide ER] 1 tab PO DAILY 09/12/18 Amlodipine Besylate [Norvasc -] 10 mg PO DAILY #30 tablet 09/14/18 Quinapril HCl [Accupril -] 40 mg PO DAILY #60 tablet 09/14/18 This patient is new to me today: No Emergency Visit: Yes ED Registration Date: 09/12/18 Care time: The patient presented to the Emergency Department on the above date and was hospitalized for further evaluation of their emergent condition. Critical Care patient: No - Discharge Referral Referred to [facility] Med [facility].C.: No
== END 2018-09-14 12:58 | disposition home or self-care (01) | DRG 558 ==
LOC: JER 01:28 → JERBED 06:17 → J4S 18:14
PROVIDERS: ADMIT Internal Medicine; ATTEND Internal Medicine
DX: M62.82 Rhabdomyolysis (principal); I16.1 Hypertensive emergency; N17.9 Acute kidney failure, unspecified; R73.03 Prediabetes; R74.0 Nonspecific elevation of levels of transaminase and lactic acid dehydrogenase [LDH]; N48.1 Balanitis; R80.9 Proteinuria, unspecified
CPT/HCPCS: 36415; 71045-TC-FY; 78452-TC; 80053; 80061; 80307; 81003; 81015; 82550; 82553; 82962; 83036; 83721; 83735; 84100; 84443; 84484; 85025; 93005; 93010; 93017; 93306-TC; 99284-25; A9502; J1644; J7030

== ENCOUNTER 2020-05-08 12:56 | Day surgery (SDC) | payer OTHER ==
[2020-05-08 13:13] VITALS: BMI 25.9
[2020-05-08] MEDS ORDERED: HYDROmorphone HCl 2 MG/ML VIAL IM ONE (18:14)
[2020-05-08] MEDS ORDERED: ACETAMINOPHEN 325 MG TABLET (FP) PO PRN ×2 (18:14→20:15)
[2020-05-08] MEDS ORDERED: TAMSULOSIN HCL 0.4 MG CAP PO ONE (18:17)
--- NOTE | 2020-05-08 18:27 | OP ---
Operative Note - Note: Operative Date: 05/08/20 Pre-Operative Diagnosis: bph with aur and luts Operation: turp/tuvp Findings: bph with obstruction and trabeculateted bladder Post-Operative Diagnosis: Same as Pre-op Surgeon: Argentina Barrett Anesthesia: General Specimens Removed: prostate chips, urine Estimated Blood Loss (mls): 50 Instrument used (Debridements only): 0 Drains & Tubes with Location: 24f 30cc 3way triplett with cbi Drains, Volume Out (mls): 0 Blood Volume Replaced (mls): 0 Fluid Volume Replaced (mls): 0 Operative Report Dictated: Yes
[2020-05-08] MEDS ORDERED: MIDAZOLAM HCL 2 MG/2 ML SINGLE DOSE VIAL ONE ×5 (18:32→19:29)
[2020-05-08] MEDS ORDERED: ceFAZolin SODIUM 1 GM VIAL IVPB ONE (18:45)
--- NOTE | 2020-05-08 19:09 | OP ---
DATE OF OPERATION: 05/08/2020 DATE OF DICTATION: 05/08/2020 CHIEF COMPLAINT: The patient is a 54-year-old male with acute urinary retention due to benign prostatic hypertrophy. PREOPERATIVE DIAGNOSIS: Benign prostatic hypertrophy with lower urinary tract symptoms. POSTOPERATIVE DIAGNOSIS: Benign prostatic hypertrophy with lower urinary tract symptoms. OPERATIVE PROCEDURE: Cystourethroscopy, transurethral resection and transurethral vaporization of prostate. ANESTHESIA: General. DESCRIPTION OF PROCEDURE: Under above stated anesthesia, patient was prepped and draped in the usual sterile manner. He was placed in the dorsal lithotomy position. Cystoscopy under direct vision revealed a normal anterior urethra. Prostatic urethra revealed trilobar hypertrophy of the prostate. There was lateral lobe kissing. The bladder revealed a grade 2 trabeculation throughout, and no lesions or calculi were seen. Ureteral orifices were within normal limits with efflux of clear urine. A bipolar resectoscope was inserted. Resection of the prostate was commenced at the 6 o'clock position of the right lateral lobe. The left lateral lobe was then resected. Lastly, the median lobe was resected. Hemostasis was secured with electrocoagulation. Prostate chips were evacuated with an [employer] evacuator. A bipolar vapor plasma button was introduced and excess prostate tissue was vaporized. Again, no active bleeding was noted. The scope was removed. A 24 Haitian 3-way, 30 mL Gill catheter was inserted. This was connected to continuous bladder irrigation. The patient tolerated the procedure well. He returned to the recovery room in good condition. Florinda [id number]
[2020-05-08] MEDS ORDERED: SUCCINYLCHOLINE CHLORIDE 200 MG/10 ML SYRINGE ONE (19:29)
[2020-05-08] MEDS ORDERED: glipiZIDE 10 MG TABLET (FP) PO ONE (20:00)
[2020-05-08] MEDS ORDERED: oxyCODONE HCL 5 MG TABLET PO PRN (20:15)
[2020-05-08] MEDS ORDERED: HYDROmorphone HCl 2 MG/ML VIAL IVPB PRN (21:12)
[2020-05-08] MEDS: DEXTROSE 5%-0.45% SALINE 1,000 ML IV SCH (22:15)
[2020-05-08] MEDS: CEPHALEXIN MONOHYDRATE 500 MG CAPSULE (UD) PO SCH (23:03)
[2020-05-09] MEDS ORDERED: FUROSEMIDE 40 MG/4 ML INJECTABLE VIAL IVPUSH ONE (03:45)
[2020-05-09] MEDS ORDERED: amLODIPine BESYLATE 5 MG TABLET (FP) PO ONE (03:45)
[2020-05-09] MEDS: CEPHALEXIN MONOHYDRATE 500 MG CAPSULE (UD) PO SCH (06:07)
[2020-05-09] MEDS ORDERED: glipiZIDE 10 MG TABLET (FP) PO SCH (07:00)
[2020-05-09] MEDS ORDERED: TAMSULOSIN HCL 0.4 MG CAP PO SCH (08:30)
[2020-05-09] MEDS: DEXTROSE 5%-0.45% SALINE 1,000 ML IV SCH (08:37)
[2020-05-09] MEDS ORDERED: PT OWN MED DRAWER 7, Y5N ONE (08:56)
[2020-05-09] MEDS ORDERED: amLODIPine BESYLATE 5 MG TABLET (FP) PO SCH (10:00)
[2020-05-09 10:01] VITALS: BP 159/88; PULSE 110; TEMP 98.9
--- NOTE | 2020-05-12 17:25 | PATH ---
Surgical Pathology Report Patient Name: BRYSON MARIN [facility]. Rec. #: [id number] /Age/Gender: 1965 (Age: 54) / M Account: [id number] Location: AMBULATORY SURG Taken: 05/08/2020 Received: 05/11/2020 Reported: 05/12/2020 Physicians: Argentina Barrett M.D. Specimen(s) Received PROSTATE TISSUE Clinical History Hypertrophy of prostate Final Diagnosis PROSTATE TISSUE, TRANSURETHRAL RESECTION OF PROSTATE: BENIGN PROSTATIC TISSUE WITH PATCHY SEVERE ACUTE AND CHRONIC INFLAMMATION, FOCAL CYSTIC CHANGES, GLANDULAR AND STROMAL HYPERPLASIA, AND BENIGN UROTHELIAL MUCOSA. Electronically Signed Stephanie Mora M.D. Gross Description Received in formalin labeled "prostate tissue," is a 7 g, 5.5 x 4.5 x 0.6 cm aggregate of brown, firm to rubbery portions of tissue admixed with blood clot, consistent with prostate chips. The specimen is entirely submitted in 7 cassettes. /05/11/2020 [facility]/05/11/2020
== END 2020-05-09 13:13 | disposition home or self-care (01) ==
LOC: JASUSAT 12:56 → JASU-SURG 12:56 → J8W 20:36 → JASUSAT 05-09 13:13
PROVIDERS: ATTEND Urology
PROC: 0VT08ZZ Resection of Prostate, Via Natural or Artificial Opening Endoscopic (ICD-10-PCS; principal; 2020-05-08 15:00)
DX: N40.1 Benign prostatic hyperplasia with lower urinary tract symptoms (principal); R33.9 Retention of urine, unspecified
CPT/HCPCS: 82962; 88305-TC; 94760